=== PATIENT | male | born 1950 | race Caucasian/White ===

== ENCOUNTER 2018-03-02 05:53 | Inpatient (IN) | payer MEDICARE ==
[2018-02-25 11:06] LABS: BASOPHILS % (AUTO) 0.4 % (0-1); EOSINOPHILS # (AUTO) 0.5 X10'3 (0-0.9); EOSINOPHILS % (AUTO) 5.8 % (0-6); LYMPHOCYTES # (AUTO) 2.6 X10'3 (1.1-4.8); MEAN CORPUSCULAR HEMOGLOBIN 26.7 PG (27.0-31.0); MEAN CORPUSCULAR HGB CONC 32.2 % (33.0-36.5); MEAN CORPUSCULAR VOLUME 82.8 FL (78-98); MEAN PLATELET VOLUME 9.5 FL (7.4-10.4); MONOCYTES # (AUTO) 0.9 X10'3 (0-0.9); MONOCYTES % (AUTO) 9.8 % (2-12); NEUTROPHILS # (AUTO) 4.8 X10'3 (1.8-7.7); PRE OP HEMATOCRIT 34.5 % (42.0-52.0); PRE OP HEMOGLOBIN 11.1 g/dL (14.0-17.9); PRE OP PLATELET COUNT 313 X10'3 (140-440); RED BLOOD COUNT 4.16 X10'6 (4.70-6.10); RED CELL DISTRIBUTION WIDTH 15.6 % (11.5-14.5)
[2018-02-25 11:12] LABS: CLARITY,URINE Clear (Clear); COLOR,URINE Yellow (Yellow); GLUCOSE, URINE Negative (Neg); KETONES,URINE Negative (Neg); LEUKOCYTE ESTERASE ,URINE Negative (Neg); NITRITES, URINE Negative (Neg); OCCULT BLOOD,URINE Negative (Neg); PROTEIN,URINE Negative (Neg); UROBILINOGEN,URINE 0.2 E.U/dL (0.2-1.0)
[2018-02-25 11:15] LABS: UA COLLECTION TYPE CLN CATCH MIDSTREAM
[2018-02-25 11:35] LABS: ALBUMIN 3.2 G/DL (3.4-5.0); ALBUMIN/GLOBULIN RATIO 0.8 (1.1-1.5); ALKALINE PHOSPHATASE 78 IU/L (46-116); BLOOD UREA NITROGEN 20 MG/DL (7-18); BUN/CREATININE RATIO 15.7 (5.4-32.0); CALCIUM 9.4 MG/DL (8.5-10.1); CHLORIDE 107 MMOL/L (99-107); CREATININE 1.27 MG/DL (0.60-1.10); PRE OP ALT 15 U/L (30-65); PRE OP ANION GAP 11 (8-16); PRE OP AST 15 U/L (10-37); PRE OP BILIRUB, TOTAL 0.2 MG/DL (0.0-1.0); PRE OP GLUCOSE 139 MG/DL (70-104); PRE OP POTASSIUM 4.9 MMOL/L (3.4-5.1); PRE OP SODIUM 139 MMOL/L (135-145); TOTAL CARBON DIOXIDE 21.4 MMOL/L (24-32); TOTAL PROTEIN 7.1 G/DL (6.4-8.2); eGFR 56 ML/MIN
[~2018-03-02] VITALS: Ht 177.8 cm; Wt 101.0 kg
[2018-03-02] VITALS (20 sets, daily range): BP systolic 92–158; BP diastolic 37–78
[~2018-03-02 05:53] MED LIST: ASPI-845 PO; ATEN50TA PO; ATOR40TA PO; Cefazolin 2GM/50ML dext iso,osmotic IVPB IV ONE; DILT240C PO; DOCUMENT DATE & TIME OF BETA-BLOCKER PO ONE; LISI40TA4 PO; MULT-933 PO; QUET50TA22 PO; SPIR1TAB4 PO; famotidine 20mg tablet PO ONE; ringers solution, lacted 1,000 ML IV SCH
[2018-03-02] MEDS ORDERED: sevoflurane 250ml liquid IH ONE (08:22)
[2018-03-02] MEDS ORDERED: fentaNYL/PF 50MCG/1 ML 2ML syringe ONE (08:23)
[2018-03-02] MEDS ORDERED: midazolam 2 mg/2 ml injection ONE (08:24)
[2018-03-02] MEDS ORDERED: rocuronium 10mg/ml inj IV ONE (08:24)
[2018-03-02] MEDS ORDERED: LIDOcaine 2% (20mg/ml) 5ml vial ONE (08:24)
[2018-03-02] MEDS ORDERED: propofol inj 20 ML IV ONE (08:24)
[2018-03-02] MEDS ORDERED: ondansetron/PF 4mg/2ml inj ONE (08:39)
[2018-03-02] MEDS ORDERED: glycopyrrolate 0.2mg/ml inj ONE (08:41)
[2018-03-02] MEDS ORDERED: neostigmine methylsulfate 1 MG/ML 10ml vial ONE ×2 (08:41→10:11)
[2018-03-02] MEDS ORDERED: ringers solution, lacted 1,000 ML IV SCH (08:59)
[2018-03-02] MEDS ORDERED: fentaNYL/PF 50MCG/1 ML 2ML syringe IV PRN ×2 (09:00)
[2018-03-02] MEDS ORDERED: ondansetron/PF 4mg/2ml inj IV PRN ×2 (09:00→11:15)
[2018-03-02] MEDS ORDERED: morphine 4 MG/ML inj SYRINge IV PRN (09:00)
[2018-03-02] MEDS ORDERED: enalaprilat dihydrate 2.5mg/2ml vial IV PRN (09:00)
[2018-03-02] MEDS ORDERED: hydrALAZINE 20mg/ml inj. IV PRN (09:00)
[2018-03-02] MEDS: morphine 4 MG/ML inj SYRINge IV PRN ×2 (11:05→11:22)
[2018-03-02] MEDS ORDERED: HYDROcodone/acetaminophen 5mg/325mg tablet PO PRN (11:15)
[2018-03-02] MEDS: ceFAZolin inj. 1,000 MG in dextrose 5%-water 50ml 50 ML IV SCH ×2 (16:19→23:30)
[2018-03-02] MEDS: potassium CL 20mEq in D5-1/2NS 1,000 ML IV SCH ×3 (16:19→23:30)
[2018-03-02] MEDS: HYDROcodone/acetaminophen 10/325mg tab PO PRN ×2 (16:58→20:59)
[2018-03-02] MEDS: QUEtiapine 25mg tablet PO SCH (20:59)
[2018-03-03] VITALS: BP 98/44
[2018-03-03] MEDS: HYDROcodone/acetaminophen 10/325mg tab PO PRN ×5 (03:51→20:35)
[2018-03-03 04:30] VITALS: BP 118/34
[2018-03-03 06:03] LABS: ALBUMIN 2.2 G/DL (3.4-5.0); ANION GAP 10 (8-16); BLOOD UREA NITROGEN 19 MG/DL (7-18); BUN/CREATININE RATIO 11.8 (5.4-32.0); CHLORIDE 104 MMOL/L (99-107); CREATININE 1.61 MG/DL (0.60-1.10); GLUCOSE 175 MG/DL (70-104); POTASSIUM 4.5 MMOL/L (3.5-5.1); SODIUM 135 MMOL/L (135-145); TOTAL CARBON DIOXIDE 21.3 MMOL/L (24-32); eGFR 43 ML/MIN
[2018-03-03 06:40] LABS: BASOPHILS % (AUTO) 0 % (0-1); EOSINOPHILS # (AUTO) 0.1 X10'3 (0-0.9); EOSINOPHILS % (AUTO) 0.3 % (0-6); HEMATOCRIT 28.6 % (42.0-52.0); HEMOGLOBIN 9.6 g/dl (14.0-17.9); LYMPHOCYTES # (AUTO) 2.2 X10'3 (1.1-4.8); LYMPHOCYTES % (AUTO) 12.8 % (21-51); MEAN CORPUSCULAR HEMOGLOBIN 27.9 PG (27.0-31.0); MEAN CORPUSCULAR HGB CONC 33.5 % (33.0-36.5); MEAN CORPUSCULAR VOLUME 83.4 FL (78-98); MEAN PLATELET VOLUME 10.5 FL (7.4-10.4); MONOCYTES # (AUTO) 1.3 X10'3 (0-0.9); MONOCYTES % (AUTO) 7.6 % (2-12); NEUTROPHILS # (AUTO) 13.4 X10'3 (1.8-7.7); NEUTROPHILS % (AUTO) 79.3 % (42-75); PLATELET COUNT 217 X10'3 (140-440); RED BLOOD COUNT 3.43 X10'6 (4.70-6.10); RED CELL DISTRIBUTION WIDTH 14.6 % (11.5-14.5)
[2018-03-03] MEDS: ceFAZolin inj. 1,000 MG in dextrose 5%-water 50ml 50 ML IV SCH (06:46)
[2018-03-03 08:00] VITALS: BP 101/45
[2018-03-03] MEDS: potassium CL 20mEq in D5-1/2NS 1,000 ML IV SCH (11:13)
[2018-03-03 12:00] VITALS: BP 118/47
[2018-03-03] MEDS: ceFAZolin 1GM/D5W- ADD-VANTAGE 50 ML IV SCH ×2 (12:29→20:30)
[2018-03-03] MEDS ORDERED: ceFAZolin 1GM/D5W- ADD-VANTAGE 50 ML IV SCH (16:00)
[2018-03-03 20:00] VITALS: BP 143/52
[2018-03-03] MEDS: lactobacillus rhamnosus 10,000 MMU CELLS/CAPSULE PO SCH (20:35)
[2018-03-03] MEDS ORDERED: QUEtiapine 25mg tablet PO SCH (21:00)
[2018-03-03] MEDS: QUEtiapine 25mg tablet PO SCH (21:32)
[2018-03-04] VITALS: BP 156/37
[2018-03-04] MEDS: HYDROcodone/acetaminophen 10/325mg tab PO PRN ×4 (00:46→13:17)
[2018-03-04] MEDS: ceFAZolin 1GM/D5W- ADD-VANTAGE 50 ML IV SCH ×2 (04:30→12:36)
[2018-03-04 05:25] LABS: BASOPHILS % (AUTO) 0.1 % (0-1); EOSINOPHILS # (AUTO) 0.4 X10'3 (0-0.9); EOSINOPHILS % (AUTO) 2.6 % (0-6); HEMATOCRIT 28.4 % (42.0-52.0); HEMOGLOBIN 9.4 g/dl (14.0-17.9); LYMPHOCYTES # (AUTO) 2.3 X10'3 (1.1-4.8); LYMPHOCYTES % (AUTO) 13.9 % (21-51); MEAN CORPUSCULAR HEMOGLOBIN 26.8 PG (27.0-31.0); MEAN CORPUSCULAR HGB CONC 33.3 % (33.0-36.5); MEAN CORPUSCULAR VOLUME 80.7 FL (78-98); MONOCYTES # (AUTO) 1.4 X10'3 (0-0.9); MONOCYTES % (AUTO) 8.6 % (2-12); NEUTROPHILS # (AUTO) 12.1 X10'3 (1.8-7.7); NEUTROPHILS % (AUTO) 74.8 % (42-75); PLATELET COUNT 222 X10'3 (140-440); RED BLOOD COUNT 3.52 X10'6 (4.70-6.10); RED CELL DISTRIBUTION WIDTH 15.6 % (11.5-14.5); WHITE BLOOD COUNT 16.2 X10'3 (4.5-11.0)
[2018-03-04 05:43] LABS: ALBUMIN 2.3 G/DL (3.4-5.0); ANION GAP 7 (8-16); BLOOD UREA NITROGEN 17 MG/DL (7-18); BUN/CREATININE RATIO 11.4 (5.4-32.0); CALCIUM 8.3 MG/DL (8.5-10.1); CHLORIDE 103 MMOL/L (99-107); CREATININE 1.49 MG/DL (0.60-1.10); GLUCOSE 139 MG/DL (70-104); POTASSIUM 4.1 MMOL/L (3.5-5.1); SODIUM 135 MMOL/L (135-145); eGFR 47 ML/MIN
[2018-03-04 07:13] VITALS: BP 131/48
[2018-03-04] MEDS ORDERED: atorvastatin 10mg tablet PO SCH (08:00)
[2018-03-04] MEDS ORDERED: multivitamins, therapeutics tablet PO SCH (08:00)
[2018-03-04] MEDS ORDERED: diltiazem CD 120mg capsule (once-daily) PO SCH (08:00)
[2018-03-04] MEDS ORDERED: aspirin 325mg tablet, delayed-release (Ecotrin) PO SCH (08:00)
[2018-03-04] MEDS ORDERED: lisinopril 20mg tablet PO SCH (08:00)
[2018-03-04] MEDS ORDERED: atenolol 50mg tablet PO SCH (08:00)
[2018-03-04] MEDS ORDERED: spironolactone 25 MG tablet PO SCH (08:30)
[2018-03-04] MEDS ORDERED: HYDROchlorothiazide 25mg tablet PO SCH (08:30)
[2018-03-04] MEDS: lactobacillus rhamnosus 10,000 MMU CELLS/CAPSULE PO SCH (08:41)
[2018-03-04 11:23] VITALS: BP_SYST 113; BP_SYST 121; BP_DIAS 47; BP_DIAS 74
== END 2018-03-04 19:22 | disposition home or self-care (01) | DRG 419 ==
LOC: PAS 05:53 → SUR 3N 05:54 → PAS 12:04 → SUR 3N 12:04
PROVIDERS: ADMIT Surgery; ATTEND Surgery
PROC: 0FT44ZZ Resection of Gallbladder, Percutaneous Endoscopic Approach (ICD-10-PCS; principal; 2018-03-02 08:22)
DX: K80.12 Calculus of gallbladder with acute and chronic cholecystitis without obstruction (principal); E11.9 Type 2 diabetes mellitus without complications; I10 Essential (primary) hypertension; E66.9 Obesity, unspecified; Z68.31 Body mass index [BMI] 31.0-31.9, adult
CPT/HCPCS: 36415; 71046; 80048; 80053; 81003; 82948; 83036; 85025; 85610; 85730; 88304; 93005; 94668; A6251; A6449; A7000; J0690; J2001; J2250; J2270; J2405; J2704; J2710; J3010; J3490; J7060; J7120

== ENCOUNTER 2018-03-08 09:45 | Day surgery (SDC) | payer MEDICARE ==
[~2018-03-08 09:45] MED LIST changes: -Cefazolin 2GM/50ML dext iso,osmotic IVPB IV ONE; -DOCUMENT DATE & TIME OF BETA-BLOCKER PO ONE; -famotidine 20mg tablet PO ONE; -ringers solution, lacted 1,000 ML IV SCH
[2018-03-08] MEDS ORDERED: LEVO750T21 PO (11:12)
== END 2018-03-08 11:24 | disposition home or self-care (01) ==
LOC: WOUND CARE 09:45
PROVIDERS: ATTEND Surgery
DX: E11.621 Type 2 diabetes mellitus with foot ulcer (principal); L97.521 Non-pressure chronic ulcer of other part of left foot limited to breakdown of skin; E11.40 Type 2 diabetes mellitus with diabetic neuropathy, unspecified; E66.9 Obesity, unspecified; K80.13 Calculus of gallbladder with acute and chronic cholecystitis with obstruction; I10 Essential (primary) hypertension; Z68.31 Body mass index [BMI] 31.0-31.9, adult
CPT/HCPCS: 11042; 36416; 82948; A6021; A6206; A6446

== ENCOUNTER 2018-03-17 10:13 | Day surgery (SDC) | payer MEDICARE ==
[~2018-03-17 10:13] MED LIST changes: +LEVO750T21 PO
[2018-03-17] MEDS ORDERED: dextrose ORAL solution 15 GM/59 ML bottle ONE ×2 (11:16)
[2018-03-17] MEDS ORDERED: CLIN150C8 PO (13:52)
== END 2018-03-17 12:19 | disposition home or self-care (01) ==
LOC: WOUND CARE 10:13
PROVIDERS: ATTEND Surgery
DX: E11.621 Type 2 diabetes mellitus with foot ulcer (principal); L97.522 Non-pressure chronic ulcer of other part of left foot with fat layer exposed; E11.40 Type 2 diabetes mellitus with diabetic neuropathy, unspecified; E66.9 Obesity, unspecified; K80.13 Calculus of gallbladder with acute and chronic cholecystitis with obstruction; I10 Essential (primary) hypertension; Z68.31 Body mass index [BMI] 31.0-31.9, adult
CPT/HCPCS: 11044; 36416; 82948; 87070; 87075; 87077; 87102; 87176; 87186; A6021; A6206; L3260

== ENCOUNTER 2018-03-22 09:15 | Outpatient (CLI) | payer MEDICARE ==
[~2018-03-22 09:15] MED LIST changes: +CLIN150C8 PO; -LEVO750T21 PO
[2018-03-22] MEDS ORDERED: HYDR-3964 PO (12:43)
[2018-03-22] MEDS ORDERED: RIFA300C4 PO (12:50)
[2018-03-22] MEDS ORDERED: ATOR10TA PO (12:52)
== END 2018-03-22 11:40 | disposition home or self-care (01) ==
LOC: WOUND CARE 09:15 → EDSTATUS 09:30 → WOUND CARE 11:40
PROVIDERS: ATTEND Surgery
DX: E11.621 Type 2 diabetes mellitus with foot ulcer (principal); L97.522 Non-pressure chronic ulcer of other part of left foot with fat layer exposed; E11.40 Type 2 diabetes mellitus with diabetic neuropathy, unspecified; E66.9 Obesity, unspecified; K80.13 Calculus of gallbladder with acute and chronic cholecystitis with obstruction; I10 Essential (primary) hypertension; Z68.31 Body mass index [BMI] 31.0-31.9, adult
CPT/HCPCS: 36416; 82948; 99215

== ENCOUNTER 2018-03-23 12:38 | Day surgery (SDC) | payer MEDICARE ==
[2018-03-22 13:41] LABS: CLARITY,URINE CLEAR (Clear); COLOR,URINE YELLOW (Yellow); GLUCOSE, URINE NEGATIVE (Neg); KETONES,URINE NEGATIVE (Neg); LEUKOCYTE ESTERASE ,URINE NEGATIVE (Neg); NITRITES, URINE NEGATIVE (Neg); OCCULT BLOOD,URINE MODERATE (Neg); PH,URINE 5.5 (4.8-8.0); PROTEIN,URINE NEGATIVE (Neg); UROBILINOGEN,URINE 0.2 E.U/dL (0.2-1.0)
[2018-03-22 13:45] LABS: RED BLOOD COUNT 3.91 X10'6 (4.70-6.10)
[2018-03-22 13:47] LABS: PRE OP PROTIME 10.7 SECONDS (9.0-12.0)
[2018-03-22 13:48] LABS: BASOPHILS % (AUTO) 0.4 % (0-1); EOSINOPHILS % (AUTO) 5.4 % (0-6); LYMPHOCYTES % (AUTO) 24.6 % (21-51); MEAN CORPUSCULAR HEMOGLOBIN 26.3 PG (27.0-31.0); MEAN CORPUSCULAR HGB CONC 32.9 % (33.0-36.5); MEAN CORPUSCULAR VOLUME 79.7 FL (78-98); MEAN PLATELET VOLUME 8.7 FL (7.4-10.4); MONOCYTES % (AUTO) 6.1 % (2-12); NEUTROPHILS % (AUTO) 63.5 % (42-75); PRE OP HEMATOCRIT 31.1 % (42.0-52.0); PRE OP HEMOGLOBIN 10.3 g/dL (14.0-17.9); PRE OP PLATELET COUNT 466 X10'3 (140-440); RED CELL DISTRIBUTION WIDTH 14.8 % (11.5-14.5)
[2018-03-22 13:49] LABS: EOSINOPHILS # (AUTO) 0.6 X10'3 (0-0.9); LYMPHOCYTES # (AUTO) 2.8 X10'3 (1.1-4.8); MONOCYTES # (AUTO) 0.7 X10'3 (0-0.9); NEUTROPHILS # (AUTO) 7.4 X10'3 (1.8-7.7)
[2018-03-22 13:51] LABS: ALBUMIN 2.5 G/DL (3.4-5.0); ALBUMIN/GLOBULIN RATIO 0.6 (1.1-1.5); ALKALINE PHOSPHATASE 110 IU/L (46-116); BLOOD UREA NITROGEN 26 MG/DL (7-18); CALCIUM 8.7 MG/DL (8.5-10.1); CHLORIDE 107 MMOL/L (99-107); CREATININE 1.62 MG/DL (0.60-1.10); PRE OP ALT 20 U/L (30-65); PRE OP ANION GAP 12 (8-16); PRE OP AST 13 U/L (10-37); PRE OP BILIRUB, TOTAL 0.2 MG/DL (0.0-1.0); PRE OP GLUCOSE 188 MG/DL (70-104); PRE OP POTASSIUM 4.7 MMOL/L (3.4-5.1); PRE OP SODIUM 142 MMOL/L (135-145); TOTAL CARBON DIOXIDE 22.9 MMOL/L (24-32); TOTAL PROTEIN 6.6 G/DL (6.4-8.2); eGFR 42 ML/MIN
[2018-03-22 13:54] LABS: UA COLLECTION TYPE VOIDED
[2018-03-22 13:56] LABS: HYALINE CASTS 0-3 /LPF (NEGATIVE)
[2018-03-22 13:57] LABS: BACTERIA,URINE FEW /HPF (Neg); MUCUS STRANDS MODERATE /LPF (Neg); RBC,URINE 0-2 /HPF (0-2); SQUAMOUS EPITHELIAL CELL,UR FEW /LPF (FEW); WBC,URINE 0-4 /HPF (0-4)
[~2018-03-23] VITALS: Ht 177.8 cm; Wt 95.2 kg
[~2018-03-23 12:38] MED LIST changes: +ATOR10TA PO; +DOCUMENT DATE & TIME OF BETA-BLOCKER PO ONE; +HYDR-3964 PO; +RIFA300C4 PO; +cefazolin/dext.iso 2gm/100 ML IV ONE; +famotidine 20mg tablet PO ONE; +ringers solution, lacted 1,000 ML IV SCH
[2018-03-23] MEDS ORDERED: LIDOcaine 1% 30ml preserv. free vial ONE (14:44)
[2018-03-23] MEDS ORDERED: midazolam 2 mg/2 ml injection ONE (15:09)
[2018-03-23] MEDS ORDERED: fentaNYL/PF 50MCG/1 ML 2ML syringe ONE (15:09)
[2018-03-23] MEDS ORDERED: LIDOcaine 1%/PF 5ML 10 MG/ML VIAL ONE (15:13)
[2018-03-23] MEDS ORDERED: propofol inj 20 ML IV ONE (15:13)
[2018-03-23 15:37] VITALS: BP 111/62
[2018-03-23 15:42] VITALS: BP 111/62
[2018-03-23 15:45] VITALS: BP 108/58
[2018-03-23 15:55] VITALS: BP 121/58
[2018-03-23 16:05] VITALS: BP 118/54
[2018-03-23 16:15] VITALS: BP 125/52
== END 2018-03-23 16:25 | disposition home or self-care (01) ==
LOC: PAS 12:38
PROVIDERS: ATTEND Surgery
DX: E11.69 Type 2 diabetes mellitus with other specified complication (principal); M86.8X7 Other osteomyelitis, ankle and foot; E11.621 Type 2 diabetes mellitus with foot ulcer; L97.528 Non-pressure chronic ulcer of other part of left foot with other specified severity; I10 Essential (primary) hypertension; I25.10 Atherosclerotic heart disease of native coronary artery without angina pectoris; Z95.0 Presence of cardiac pacemaker; Z95.5 Presence of coronary angioplasty implant and graft; Z98.84 Bariatric surgery status; Z79.899 Other long term (current) drug therapy
CPT/HCPCS: 28820; 36415; 80053; 81001; 85025; 85610; 85730; A6266; A6446; A6449; J0690; J2001; J2250; J2704; J3010; J3490; J7120; A7000

== ENCOUNTER 2018-03-25 10:05 | Outpatient (CLI) | payer MEDICARE ==
[~2018-03-25 10:05] MED LIST changes: -ATOR40TA PO; -CLIN150C8 PO; -DOCUMENT DATE & TIME OF BETA-BLOCKER PO ONE; -HYDR-3964 PO; -cefazolin/dext.iso 2gm/100 ML IV ONE; -famotidine 20mg tablet PO ONE; -ringers solution, lacted 1,000 ML IV SCH
== END 2018-03-25 13:08 | disposition home or self-care (01) ==
LOC: WOUND CARE 10:05 → EDSTATUS 11:00 → WOUND CARE 13:08
PROVIDERS: ATTEND Surgery
DX: E11.621 Type 2 diabetes mellitus with foot ulcer (principal); L97.522 Non-pressure chronic ulcer of other part of left foot with fat layer exposed; E11.40 Type 2 diabetes mellitus with diabetic neuropathy, unspecified; E66.9 Obesity, unspecified; K80.13 Calculus of gallbladder with acute and chronic cholecystitis with obstruction; I10 Essential (primary) hypertension; Z68.31 Body mass index [BMI] 31.0-31.9, adult
CPT/HCPCS: 36416; 82948; 99215; A6209; A6266

== ENCOUNTER 2018-03-29 08:00 | Day surgery (SDC) | payer MEDICARE ==
[2018-03-29] MEDS ORDERED: LIDOcaine/PRILOcaine 5gm cream TP ONE (09:44)
== END 2018-03-29 10:34 | disposition home or self-care (01) ==
LOC: WOUND CARE 08:00
PROVIDERS: ATTEND Surgery
DX: T87.89 Other complications of amputation stump (principal); E11.621 Type 2 diabetes mellitus with foot ulcer; L97.522 Non-pressure chronic ulcer of other part of left foot with fat layer exposed; E11.40 Type 2 diabetes mellitus with diabetic neuropathy, unspecified; E66.9 Obesity, unspecified; K80.13 Calculus of gallbladder with acute and chronic cholecystitis with obstruction; I10 Essential (primary) hypertension; E11.65 Type 2 diabetes mellitus with hyperglycemia; Z68.31 Body mass index [BMI] 31.0-31.9, adult; Y83.5 Amputation of limb(s) as the cause of abnormal reaction of the patient, or of later complication, without mention of misadventure at the time of the procedure
CPT/HCPCS: 11042; 36416; 82948; A6266

== ENCOUNTER 2018-04-01 07:58 | Day surgery (SDC) | payer MEDICARE | END 2018-04-01 10:07 | disposition home or self-care (01) | LOC: WOUND CARE 07:58 | PROVIDERS: ATTEND Surgery | DX: T87.89 Other complications of amputation stump (principal); E11.621 Type 2 diabetes mellitus with foot ulcer; L97.522 Non-pressure chronic ulcer of other part of left foot with fat layer exposed; E11.40 Type 2 diabetes mellitus with diabetic neuropathy, unspecified; E66.9 Obesity, unspecified; K80.13 Calculus of gallbladder with acute and chronic cholecystitis with obstruction; I10 Essential (primary) hypertension; E11.65 Type 2 diabetes mellitus with hyperglycemia; Z68.31 Body mass index [BMI] 31.0-31.9, adult; Y83.5 Amputation of limb(s) as the cause of abnormal reaction of the patient, or of later complication, without mention of misadventure at the time of the procedure | CPT/HCPCS: 11042; 36416; 82948; A6021; A6206 ==

== ENCOUNTER 2018-04-05 07:55 | Day surgery (SDC) | payer MEDICARE ==
[2018-04-05] MEDS ORDERED: LIDOcaine/PRILOcaine 5gm cream TP ONE (09:57)
== END 2018-04-05 10:35 | disposition home or self-care (01) ==
LOC: WOUND CARE 07:55
PROVIDERS: ATTEND Surgery
DX: T81.89XD Other complications of procedures, not elsewhere classified, subsequent encounter (principal); E11.621 Type 2 diabetes mellitus with foot ulcer; L97.522 Non-pressure chronic ulcer of other part of left foot with fat layer exposed; E11.40 Type 2 diabetes mellitus with diabetic neuropathy, unspecified; E66.9 Obesity, unspecified; K80.13 Calculus of gallbladder with acute and chronic cholecystitis with obstruction; I10 Essential (primary) hypertension; E11.65 Type 2 diabetes mellitus with hyperglycemia; Z68.31 Body mass index [BMI] 31.0-31.9, adult; Y83.8 Other surgical procedures as the cause of abnormal reaction of the patient, or of later complication, without mention of misadventure at the time of the procedure
CPT/HCPCS: 11042; 36416; 82948; A6021; A6206

== ENCOUNTER 2018-04-12 08:25 | Day surgery (SDC) | payer MEDICARE | END 2018-04-12 11:03 | disposition home or self-care (01) | LOC: WOUND CARE 08:25 | PROVIDERS: ATTEND Surgery | DX: T81.89XD Other complications of procedures, not elsewhere classified, subsequent encounter (principal); E11.621 Type 2 diabetes mellitus with foot ulcer; L97.522 Non-pressure chronic ulcer of other part of left foot with fat layer exposed; E11.40 Type 2 diabetes mellitus with diabetic neuropathy, unspecified; E66.9 Obesity, unspecified; K80.13 Calculus of gallbladder with acute and chronic cholecystitis with obstruction; I10 Essential (primary) hypertension; E11.65 Type 2 diabetes mellitus with hyperglycemia; Z68.31 Body mass index [BMI] 31.0-31.9, adult; Y83.8 Other surgical procedures as the cause of abnormal reaction of the patient, or of later complication, without mention of misadventure at the time of the procedure | CPT/HCPCS: 11042; 36416; 82948; A6021; A6206; A6446 ==

== ENCOUNTER 2018-04-19 08:00 | Day surgery (SDC) | payer MEDICARE ==
[2018-04-19] MEDS ORDERED: LIDOcaine/PRILOcaine 5gm cream TP ONE (09:50)
== END 2018-04-19 10:48 | disposition home or self-care (01) ==
LOC: WOUND CARE 08:00
PROVIDERS: ATTEND Surgery
DX: T81.89XD Other complications of procedures, not elsewhere classified, subsequent encounter (principal); E11.621 Type 2 diabetes mellitus with foot ulcer; L97.522 Non-pressure chronic ulcer of other part of left foot with fat layer exposed; E11.40 Type 2 diabetes mellitus with diabetic neuropathy, unspecified; E66.9 Obesity, unspecified; K80.13 Calculus of gallbladder with acute and chronic cholecystitis with obstruction; I10 Essential (primary) hypertension; E11.65 Type 2 diabetes mellitus with hyperglycemia; Z68.31 Body mass index [BMI] 31.0-31.9, adult; Y83.8 Other surgical procedures as the cause of abnormal reaction of the patient, or of later complication, without mention of misadventure at the time of the procedure
CPT/HCPCS: 15275; 36416; 82948; A6209; A6446; A6449; Q4106; A6250

== ENCOUNTER 2018-04-26 07:50 | Day surgery (SDC) | payer MEDICARE ==
[2018-04-26] MEDS ORDERED: LIDOcaine/PRILOcaine 5gm cream TP ONE (09:36)
== END 2018-04-26 10:29 | disposition home or self-care (01) ==
LOC: WOUND CARE 07:50
PROVIDERS: ATTEND Surgery
DX: T81.89XD Other complications of procedures, not elsewhere classified, subsequent encounter (principal); E11.621 Type 2 diabetes mellitus with foot ulcer; L97.522 Non-pressure chronic ulcer of other part of left foot with fat layer exposed; E11.40 Type 2 diabetes mellitus with diabetic neuropathy, unspecified; E66.9 Obesity, unspecified; K80.13 Calculus of gallbladder with acute and chronic cholecystitis with obstruction; I10 Essential (primary) hypertension; E11.65 Type 2 diabetes mellitus with hyperglycemia; Z68.31 Body mass index [BMI] 31.0-31.9, adult; Y83.8 Other surgical procedures as the cause of abnormal reaction of the patient, or of later complication, without mention of misadventure at the time of the procedure
CPT/HCPCS: 15275; 36416; 82948; A6209; A6222; Q4133; A6212; A6250; A6446

== ENCOUNTER 2018-05-03 08:01 | Day surgery (SDC) | payer MEDICARE ==
[2018-05-03] MEDS ORDERED: LIDOcaine/PRILOcaine 5gm cream TP ONE (09:44)
== END 2018-05-03 10:25 | disposition home or self-care (01) ==
LOC: WOUND CARE 08:01
PROVIDERS: ATTEND Surgery
DX: T81.89XD Other complications of procedures, not elsewhere classified, subsequent encounter (principal); E11.621 Type 2 diabetes mellitus with foot ulcer; L97.522 Non-pressure chronic ulcer of other part of left foot with fat layer exposed; E11.40 Type 2 diabetes mellitus with diabetic neuropathy, unspecified; E66.9 Obesity, unspecified; K80.13 Calculus of gallbladder with acute and chronic cholecystitis with obstruction; I10 Essential (primary) hypertension; E11.65 Type 2 diabetes mellitus with hyperglycemia; Z68.31 Body mass index [BMI] 31.0-31.9, adult; Y83.8 Other surgical procedures as the cause of abnormal reaction of the patient, or of later complication, without mention of misadventure at the time of the procedure
CPT/HCPCS: 15275; 36416; 82948; A6209; A6222; Q4133; A6250; A6446

== ENCOUNTER 2018-05-10 08:03 | Outpatient (CLI) | payer MEDICARE ==
[2018-05-10] MEDS ORDERED: LIDOcaine/PRILOcaine 5gm cream TP ONE (09:42)
== END 2018-05-10 10:21 | disposition home or self-care (01) ==
LOC: WOUND CARE 08:03
PROVIDERS: ATTEND Surgery
DX: T81.89XD Other complications of procedures, not elsewhere classified, subsequent encounter (principal); E11.621 Type 2 diabetes mellitus with foot ulcer; L97.522 Non-pressure chronic ulcer of other part of left foot with fat layer exposed; E11.40 Type 2 diabetes mellitus with diabetic neuropathy, unspecified; E66.9 Obesity, unspecified; K80.13 Calculus of gallbladder with acute and chronic cholecystitis with obstruction; I10 Essential (primary) hypertension; E11.65 Type 2 diabetes mellitus with hyperglycemia; Z68.31 Body mass index [BMI] 31.0-31.9, adult; Y83.8 Other surgical procedures as the cause of abnormal reaction of the patient, or of later complication, without mention of misadventure at the time of the procedure
CPT/HCPCS: 36416; 82948; 99215; A6206; A6446

== ENCOUNTER 2018-05-17 08:01 | Day surgery (SDC) | payer MEDICARE | END 2018-05-17 10:27 | disposition home or self-care (01) | LOC: WOUND CARE 08:01 | PROVIDERS: ATTEND Surgery | DX: T81.89XD Other complications of procedures, not elsewhere classified, subsequent encounter (principal); E11.621 Type 2 diabetes mellitus with foot ulcer; L97.522 Non-pressure chronic ulcer of other part of left foot with fat layer exposed; E11.40 Type 2 diabetes mellitus with diabetic neuropathy, unspecified; E66.9 Obesity, unspecified; K80.13 Calculus of gallbladder with acute and chronic cholecystitis with obstruction; I10 Essential (primary) hypertension; E11.65 Type 2 diabetes mellitus with hyperglycemia; Z68.31 Body mass index [BMI] 31.0-31.9, adult; Y83.8 Other surgical procedures as the cause of abnormal reaction of the patient, or of later complication, without mention of misadventure at the time of the procedure | CPT/HCPCS: 15275; 36416; 82948; Q4133; A6212; A6250; A6446 ==

== ENCOUNTER 2018-05-24 08:02 | Day surgery (SDC) | payer MEDICARE ==
[2018-05-24] MEDS ORDERED: LIDOcaine/PRILOcaine 5gm cream TP ONE (09:24)
== END 2018-05-24 10:17 | disposition home or self-care (01) ==
LOC: WOUND CARE 08:02
PROVIDERS: ATTEND Surgery
DX: T81.89XD Other complications of procedures, not elsewhere classified, subsequent encounter (principal); E11.621 Type 2 diabetes mellitus with foot ulcer; L97.522 Non-pressure chronic ulcer of other part of left foot with fat layer exposed; E11.40 Type 2 diabetes mellitus with diabetic neuropathy, unspecified; E66.9 Obesity, unspecified; K80.13 Calculus of gallbladder with acute and chronic cholecystitis with obstruction; I10 Essential (primary) hypertension; E11.65 Type 2 diabetes mellitus with hyperglycemia; Z68.31 Body mass index [BMI] 31.0-31.9, adult; Y83.8 Other surgical procedures as the cause of abnormal reaction of the patient, or of later complication, without mention of misadventure at the time of the procedure
CPT/HCPCS: 15275; 36416; 82948; A6209; A6222; Q4133; A6250; A6446

== ENCOUNTER 2018-06-30 08:00 | Outpatient (CLI) | payer MEDICARE ==
--- NOTE | 2018-06-30 13:49 | NUR ---
Patient ambulated independently from [facility] and was admitted to outpatient wound care for physician visit. Dressing removed, wound cleansed. Patient assessed for changes in conditions, medications and medical history. [id number] at bedside accompanied by RN. Wounds assessed and no debridement was done. Patient diagnosed as healed. No dressings were ordered. Patient was discharged. Patient instructed on the signs and symptoms of infection and to call the Wound Center if any occur or to go to the ED if we are closed: Increased pain in wound Increase in drainage from the wound Redness in the skin surrounding the wound Bleeding from the wound Temperature of 101 or greater Patient instructed that elevated blood sugars delay healing of the wound and can cause further complications including but not limited to amputation of toes or feet. Patient verbalized understanding of all discharge instructions and plan of care and ambulated independently out to [facility] in stable condition with no sign or symptom of distress at time of discharge. Addendum: 06/30/18 at 1352 by Mariama Shirley RN Amended: Links added.
== END 2018-06-30 10:20 | disposition home or self-care (01) ==
LOC: WOUND CARE 08:00 → EDSTATUS 08:00 → WOUND CARE 10:20
PROVIDERS: ATTEND Surgery
DX: T81.89XD Other complications of procedures, not elsewhere classified, subsequent encounter (principal); E11.621 Type 2 diabetes mellitus with foot ulcer; L97.522 Non-pressure chronic ulcer of other part of left foot with fat layer exposed; E11.40 Type 2 diabetes mellitus with diabetic neuropathy, unspecified; E66.9 Obesity, unspecified; K80.13 Calculus of gallbladder with acute and chronic cholecystitis with obstruction; I10 Essential (primary) hypertension; E11.65 Type 2 diabetes mellitus with hyperglycemia; Z68.31 Body mass index [BMI] 31.0-31.9, adult; Y83.8 Other surgical procedures as the cause of abnormal reaction of the patient, or of later complication, without mention of misadventure at the time of the procedure
CPT/HCPCS: 36416; 82948; G0463; A6021

== ENCOUNTER 2019-08-17 17:37 | Emergency (ER) | payer MEDICARE ==
[~2019-08-17] VITALS: Ht 172.7 cm; Wt 94.2 kg
[~2019-08-17 17:37] MED LIST changes: +DILT-94 PO; -DILT240C PO; +TRIF7.5D6 TOP
[2019-08-17] MEDS ORDERED: normal saline 1000ML IV soln IVB ONE (18:50)
[2019-08-17] MEDS ORDERED: thiamine 100mg/ml 2ml inj. IV ONE (18:50)
[2019-08-17] MEDS ORDERED: folic acid 1mg/0.2ml inj IV ONE (18:50)
--- NOTE | 2019-08-17 19:35 | NUR ---
The patient is a 69 year old male who was brought to the ER by law enforcement after his girlfriend called the police because he was making suicidal thoughts. He stated that he has been having depression and this morning he was having suicidal thoughts. He denies feeling suicidal now. He stated he is an alcoholic and has been drinking a 5th of vodka per day. He reports drinking prior to coming to the ER.
[2019-08-17 19:55] LABS: CLARITY,URINE CLEAR (Clear); COLOR,URINE YELLOW (Yellow); GLUCOSE, URINE NEGATIVE (Neg); KETONES,URINE NEGATIVE (Neg); LEUKOCYTE ESTERASE ,URINE NEGATIVE (Neg); NITRITES, URINE NEGATIVE (Neg); OCCULT BLOOD,URINE NEGATIVE (Neg); PROTEIN,URINE TRACE mg/dl (Neg); UROBILINOGEN,URINE 0.2 E.U/dL (0.2-1.0)
[2019-08-17 19:57] LABS: BASOPHILS # (AUTO) 0.1 X10'3 (0-0.2); BASOPHILS % (AUTO) 0.9 % (0-1); EOSINOPHILS # (AUTO) 0.1 X10'3 (0-0.9); EOSINOPHILS % (AUTO) 1.2 % (0-6); HEMATOCRIT 42.7 % (42.0-52.0); HEMOGLOBIN 13.7 g/dl (14.0-17.9); LYMPHOCYTES # (AUTO) 3.8 X10'3 (1.1-4.8); LYMPHOCYTES % (AUTO) 43.9 % (21-51); MEAN CORPUSCULAR HEMOGLOBIN 26.5 PG (27.0-31.0); MEAN CORPUSCULAR HGB CONC 32.2 g/dL (33.0-36.5); MEAN CORPUSCULAR VOLUME 82.5 FL (78-98); MEAN PLATELET VOLUME 8.4 FL (7.4-10.4); MONOCYTES # (AUTO) 0.4 X10'3 (0-0.9); MONOCYTES % (AUTO) 4.6 % (2-12); NEUTROPHILS # (AUTO) 4.3 X10'3 (1.8-7.7); NEUTROPHILS % (AUTO) 49.4 % (42-75); PLATELET COUNT 294 X10'3 (140-440); RED BLOOD COUNT 5.17 X10'6 (4.70-6.10); WHITE BLOOD COUNT 8.7 X10'3 (4.5-11.0)
[2019-08-17 20:08] LABS: UA COLLECTION TYPE CLN CATCH MIDSTREAM
[2019-08-17 20:10] LABS: ALANINE AMINOTRANSFERASE 30 U/L (12-78); ALBUMIN 3.4 G/DL (3.4-5.0); ALBUMIN/GLOBULIN RATIO 0.9 (1.1-1.5); ALKALINE PHOSPHATASE 131 IU/L (46-116); ANION GAP 16 (8-16); ASPARTATE AMINO TRANSFERASE 30 U/L (10-37); BILIRUBIN,TOTAL 0.3 MG/DL (0.1-1.0); BLOOD UREA NITROGEN 21 MG/DL (7-18); BUN/CREATININE RATIO 16.2 (5.4-32.0); CALCIUM 8.6 MG/DL (8.5-10.1); CHLORIDE 109 MMOL/L (99-107); GLUCOSE 103 MG/DL (70-104); POTASSIUM 4.9 MMOL/L (3.5-5.1); SODIUM 147 MMOL/L (135-145); TOTAL CARBON DIOXIDE 21.7 MMOL/L (24-32); TOTAL PROTEIN 7.2 G/DL (6.4-8.2); eGFR 54 ML/MIN
[2019-08-17 20:10] LABS: BACTERIA,URINE NONE SEEN /HPF (Neg); RBC,URINE 0-2 /HPF (0-2); SQUAMOUS EPITHELIAL CELL,UR FEW /LPF (FEW); WBC,URINE NONE SEEN /HPF (0-4)
[2019-08-17 20:14] LABS: URINE AMPHETAMINE SCREEN NEGATIVE (Neg); URINE BARBITUATE SCREEN NEGATIVE (Neg); URINE BENZODIAZEPINES SCREEN NEGATIVE (Neg); URINE CANNABINOID SCREEN NEGATIVE (Neg); URINE COCAINE SCREEN NEGATIVE (Neg); URINE METHADONE SCREEN NEGATIVE (Neg); URINE OPIATE SCREEN NEGATIVE (Neg); URINE PHENCYCLIDINE SCREEN NEGATIVE (Neg)
[2019-08-17 20:20] LABS: ETHANOL 0.285 GM/DL (0.0-0.010)
[2019-08-17] MEDS: QUEtiapine 25mg tablet PO SCH ×2 (20:43→21:19)
--- NOTE | 2019-08-17 20:43 | NUR ---
The patient takes Seroquel as a sleeping bill. He cannot recall when he last took it. He is intoxicated and sleeping at this point and the medication was held
[2019-08-17] MEDS ORDERED: acetaminophen 325mg tablet PO ONE (21:15)
--- NOTE | 2019-08-18 00:20 | NUR ---
The patient is awake and sitting up in a chair
--- NOTE | 2019-08-18 02:50 | NUR ---
Assumed care of patient. Pt appears to be sleeping in supine position with no distress noted. Respirations even and unlabored.
--- NOTE | 2019-08-18 04:51 | NUR ---
Pt appears to be sleeping, lying on his right side. No distress noted. Respirations even and unlabored.
[2019-08-18 05:03] VITALS: BP_DIAS 78
--- NOTE | 2019-08-18 05:10 | NUR ---
Pt's AM blood pressure automatic cuff 201/72; manual was 190/78. Pt. has a history of HTN, verfied with Dr. Stephanie mckeon to wait of 0800 HTN medications. Pt. is asymptomatic, alert and oriented. Pt. walked himself to the bathroom without incident.
--- NOTE | 2019-08-18 06:35 | NUR ---
Patient sitting at the edge of his bed. No distress observed. Continue to monitor.
[2019-08-18] MEDS ORDERED: atenolol 50mg tablet PO SCH (08:00)
[2019-08-18] MEDS ORDERED: diltiazem CD 120mg capsule (once-daily) PO SCH (08:00)
[2019-08-18] MEDS ORDERED: atorvastatin 10mg tablet PO SCH (08:00)
[2019-08-18] MEDS ORDERED: spironolactone 25 MG tablet PO SCH (08:00)
[2019-08-18] MEDS ORDERED: aspirin 325mg tablet, delayed-release (Ecotrin) PO SCH (08:00)
[2019-08-18] MEDS ORDERED: lisinopril 20mg tablet PO SCH (08:00)
[2019-08-18] MEDS ORDERED: multivitamins, therapeutics tablet PO SCH (08:00)
[2019-08-18] MEDS ORDERED: HYDROchlorothiazide 25mg tablet PO SCH (08:00)
[2019-08-18 08:05] VITALS: BP_SYST 190
--- NOTE | 2019-08-18 08:20 | NUR ---
Patient eating breakfast. No distress observed. No signs of ETOH withdrawal. Continue to monitor.
--- NOTE | 2019-08-18 09:43 | NUR ---
Patienbt sleeping on right side. No distress observed. Continue to monitor.
--- NOTE | 2019-08-18 09:55 | NUR ---
Patient speaking with NORMA Juarez. Continue to monitor.
== END 2019-08-18 10:45 | disposition home or self-care (01) ==
LOC: ER 17:38
DX: F10.10 Alcohol abuse, uncomplicated (principal); E86.0 Dehydration; R45.851 Suicidal ideations; E11.9 Type 2 diabetes mellitus without complications; F32.9 Major depressive disorder, single episode, unspecified; F43.10 Post-traumatic stress disorder, unspecified; Z79.82 Long term (current) use of aspirin; Z79.899 Other long term (current) drug therapy
CPT/HCPCS: 36415; 80053; 80305; 80320; 81001; 84443; 85025; 96361; 96374; 96375; 99284; J3411; J3490; J7030

== ENCOUNTER 2019-08-23 04:18 | Emergency (ER) | payer MEDICARE ==
[~2019-08-23] VITALS: Ht 172.7 cm; Wt 100.0 kg
[~2019-08-23 04:18] MED LIST changes: -RIFA300C4 PO; -TRIF7.5D6 TOP
[2019-08-23 04:22] VITALS: BP 130/60
== END 2019-08-23 04:51 | disposition home or self-care (01) ==
LOC: ER 04:19
DX: F10.10 Alcohol abuse, uncomplicated (principal); E11.9 Type 2 diabetes mellitus without complications; H26.9 Unspecified cataract; Z79.82 Long term (current) use of aspirin; Z79.899 Other long term (current) drug therapy
CPT/HCPCS: 99283

== ENCOUNTER 2019-09-03 18:23 | Emergency (ER) | payer MEDICARE ==
[~2019-09-03] VITALS: Ht 172.7 cm; Wt 92.9 kg
[2019-09-03 21:00] VITALS: BP 146/78
== END 2019-09-03 20:54 | disposition home or self-care (01) ==
LOC: ER 18:24
DX: E11.621 Type 2 diabetes mellitus with foot ulcer (principal); L97.528 Non-pressure chronic ulcer of other part of left foot with other specified severity; Z79.82 Long term (current) use of aspirin; Z79.899 Other long term (current) drug therapy
CPT/HCPCS: 82948; 99282

== ENCOUNTER 2019-09-06 09:05 | Day surgery (SDC) | payer MEDICARE ==
[2019-09-06] MEDS ORDERED: dextrose ORAL solution 15 GM/59 ML bottle ONE (09:37)
[2019-09-06] MEDS ORDERED: LIDOcaine 2% 5ml jelly ONE (09:46)
== END 2019-09-06 10:29 | disposition home or self-care (01) ==
LOC: WOUND CARE 09:05
PROVIDERS: ATTEND Nurse Practitioner Family
DX: E11.621 Type 2 diabetes mellitus with foot ulcer (principal); L97.522 Non-pressure chronic ulcer of other part of left foot with fat layer exposed; E11.40 Type 2 diabetes mellitus with diabetic neuropathy, unspecified; E11.36 Type 2 diabetes mellitus with diabetic cataract; I25.10 Atherosclerotic heart disease of native coronary artery without angina pectoris; F32.9 Major depressive disorder, single episode, unspecified; F10.10 Alcohol abuse, uncomplicated; Z95.0 Presence of cardiac pacemaker; Z87.891 Personal history of nicotine dependence; Z79.82 Long term (current) use of aspirin; Z79.899 Other long term (current) drug therapy; Z90.49 Acquired absence of other specified parts of digestive tract
CPT/HCPCS: 36416; 82948; 97597

== ENCOUNTER 2019-09-13 08:55 | Day surgery (SDC) | payer MEDICARE ==
[2019-09-13] MEDS ORDERED: LIDOcaine 2% 5ml jelly ONE (09:23)
== END 2019-09-13 10:13 | disposition home or self-care (01) ==
LOC: WOUND CARE 08:55
PROVIDERS: ATTEND Nurse Practitioner Family
DX: E11.621 Type 2 diabetes mellitus with foot ulcer (principal); L97.522 Non-pressure chronic ulcer of other part of left foot with fat layer exposed; E11.40 Type 2 diabetes mellitus with diabetic neuropathy, unspecified; E11.36 Type 2 diabetes mellitus with diabetic cataract; I25.10 Atherosclerotic heart disease of native coronary artery without angina pectoris; F32.9 Major depressive disorder, single episode, unspecified; F10.10 Alcohol abuse, uncomplicated; Z95.0 Presence of cardiac pacemaker; Z87.891 Personal history of nicotine dependence; Z79.82 Long term (current) use of aspirin; Z79.899 Other long term (current) drug therapy; Z90.49 Acquired absence of other specified parts of digestive tract
CPT/HCPCS: 36416; 82948; 97597

== ENCOUNTER 2019-09-20 08:55 | Day surgery (SDC) | payer MEDICARE ==
[2019-09-20] MEDS ORDERED: LIDOcaine 2% 5ml jelly ONE (09:21)
== END 2019-09-20 10:16 | disposition home or self-care (01) ==
LOC: WOUND CARE 08:55
PROVIDERS: ATTEND Nurse Practitioner Family
DX: E11.621 Type 2 diabetes mellitus with foot ulcer (principal); L97.522 Non-pressure chronic ulcer of other part of left foot with fat layer exposed; E11.40 Type 2 diabetes mellitus with diabetic neuropathy, unspecified; E11.36 Type 2 diabetes mellitus with diabetic cataract; I25.10 Atherosclerotic heart disease of native coronary artery without angina pectoris; F32.9 Major depressive disorder, single episode, unspecified; F10.10 Alcohol abuse, uncomplicated; Z95.0 Presence of cardiac pacemaker; Z87.891 Personal history of nicotine dependence; Z79.82 Long term (current) use of aspirin; Z79.899 Other long term (current) drug therapy; Z90.49 Acquired absence of other specified parts of digestive tract; Z89.422 Acquired absence of other left toe(s)
CPT/HCPCS: 36416; 82948; 97597

== ENCOUNTER 2019-09-24 06:24 | Inpatient (IN) | payer MEDICARE ==
[~2019-09-24] VITALS: Ht 177.8 cm; Wt 92.7 kg
[2019-09-24] MEDS ORDERED: acetaminophen 325mg tablet PO ONE ×2 (06:50→08:15)
[2019-09-24] MEDS ORDERED: CefTRIAXone/D5W-Rocephin 1gm 50 ML IV ONE (08:15)
[2019-09-24 08:25] LABS: BASOPHILS # (AUTO) 0.1 X10'3 (0-0.2); BASOPHILS % (AUTO) 0.4 % (0-1); EOSINOPHILS # (AUTO) 0.1 X10'3 (0-0.9); EOSINOPHILS % (AUTO) 0.7 % (0-6); HEMATOCRIT 31.4 % (42.0-52.0); HEMOGLOBIN 10.1 g/dl (14.0-17.9); LYMPHOCYTES # (AUTO) 0.9 X10'3 (1.1-4.8); LYMPHOCYTES % (AUTO) 7.2 % (21-51); MEAN CORPUSCULAR HEMOGLOBIN 26.6 PG (27.0-31.0); MEAN CORPUSCULAR VOLUME 82.9 FL (78-98); MEAN PLATELET VOLUME 9.3 FL (7.4-10.4); MONOCYTES # (AUTO) 0.9 X10'3 (0-0.9); MONOCYTES % (AUTO) 7.6 % (2-12); NEUTROPHILS # (AUTO) 10.1 X10'3 (1.8-7.7); NEUTROPHILS % (AUTO) 84.1 % (42-75); PLATELET COUNT 182 X10'3 (140-440); RED BLOOD COUNT 3.79 X10'6 (4.70-6.10); RED CELL DISTRIBUTION WIDTH 17.6 % (11.5-14.5)
[2019-09-24 08:34] LABS: CLARITY,URINE CLEAR (Clear); COLOR,URINE STRAW (Yellow); GLUCOSE, URINE NEGATIVE (Neg); KETONES,URINE NEGATIVE (Neg); LEUKOCYTE ESTERASE ,URINE NEGATIVE (Neg); NITRITES, URINE NEGATIVE (Neg); OCCULT BLOOD,URINE NEGATIVE (Neg); PH,URINE 5.5 (4.8-8.0); PROTEIN,URINE NEGATIVE (Neg); UA COLLECTION TYPE URINAL; UROBILINOGEN,URINE 0.2 E.U/dL (0.2-1.0)
[2019-09-24] MEDS ORDERED: normal saline 1000ML IV soln IVB ONE (08:35)
[2019-09-24] MEDS ORDERED: LOPE2TAB25 PO (08:44)
[2019-09-24] MEDS ORDERED: QUET-1 PO (08:44)
[2019-09-24 08:51] LABS: ALANINE AMINOTRANSFERASE 32 U/L (12-78); ALBUMIN 2.3 G/DL (3.4-5.0); ALBUMIN/GLOBULIN RATIO 0.9 (1.1-1.5); ALKALINE PHOSPHATASE 80 IU/L (46-116); ANION GAP 8 (8-16); ASPARTATE AMINO TRANSFERASE 17 U/L (10-37); BILIRUBIN,TOTAL 0.4 MG/DL (0.1-1.0); BLOOD UREA NITROGEN 21 MG/DL (7-18); BUN/CREATININE RATIO 21.2 (5.4-32.0); C-REACTIVE PROTEIN 1.01 MG/DL (0.0-0.5); CALCIUM 6.5 MG/DL (8.5-10.1); CHLORIDE 115 MMOL/L (99-107); CREATININE 0.99 MG/DL (0.60-1.10); GLUCOSE 144 MG/DL (70-104); MAGNESIUM 1.4 MG/DL (1.5-2.4); POTASSIUM 3.8 MMOL/L (3.5-5.1); SODIUM 143 MMOL/L (135-145); TOTAL CARBON DIOXIDE 19.9 MMOL/L (24-32); TOTAL PROTEIN 4.9 G/DL (6.4-8.2); eGFR 75 ML/MIN
[2019-09-24] MEDS: normal saline 1000ml 1,000 ML IV ONE ×2 (08:59→09:27)
[2019-09-24] MEDS ORDERED: mag hydrox/Alum hydrox/simeth 30ml oral suspension PO PRN (09:25)
[2019-09-24] MEDS ORDERED: magnesium hydroxide 30ml (MOM) UD suspension PO PRN (09:25)
[2019-09-24] MEDS ORDERED: ondansetron/PF 4mg/2ml inj IV PRN (09:25)
[2019-09-24] MEDS: azithromycin/NS 500mg/250ml 250 ML IV SCH (09:25)
[2019-09-24 10:51] LABS: HEMOGLOBIN A1C 6.4 % (4.5-6.2)
--- NOTE | 2019-09-24 11:30 | NUR ---
Patient in room ORTHO 4006. I have received report from CLARITA FITZPATRICK and had the opportunity to ask questions and assume patient care.
[2019-09-24 11:35] VITALS: BP 124/70
[2019-09-24] MEDS ORDERED: loperamide 2mg capsule PO PRN (11:50)
[2019-09-24] MEDS ORDERED: insulin Lispro (HumaLOG) vial - multi-dose SQ SCH (12:35)
[2019-09-24] MEDS ORDERED: potassium Cl 20 mEq SR tablet PO PRN ×2 (12:35)
[2019-09-24] MEDS ORDERED: glucagon, human recombinant 1mg kit SUBCUT PRN (12:35)
[2019-09-24] MEDS ORDERED: MESSAGE TO PHARMACY PO ONE (12:35)
[2019-09-24] MEDS ORDERED: potassium CL 10mEq/100ml bag 100 ML IV PRN (12:35)
[2019-09-24] MEDS ORDERED: dextrose ORAL solution 15 GM/59 ML bottle PO PRN ×2 (12:35)
[2019-09-24] MEDS ORDERED: dextrose 50%-water 50ml dispensing syringe IV PRN ×2 (12:35)
[2019-09-24] MEDS: normal saline 1000ml 1,000 ML IV SCH ×2 (12:41→20:49)
--- NOTE | 2019-09-24 14:34 | NUR ---
PAGER ID: [phone] MESSAGE: [id number] IS NEGATIVE COVID
[2019-09-24] MEDS: magnesium Cl slow-release 64mg tablet PO PRN (17:07)
[2019-09-24] MEDS: acetaminophen 325mg tablet PO PRN (17:07)
[2019-09-24 18:00] VITALS: BP 145/54
--- NOTE | 2019-09-24 18:25 | NUR ---
Problems reprioritized. Patient report given, questions answered & plan of care reviewed with DONELL FITZPATRICK.
--- NOTE | 2019-09-24 18:30 | NUR ---
Patient in room ORTHO 4013. I have received report from NANTETE Valdovinos and had the opportunity to ask questions and assume patient care.
[2019-09-24] MEDS: quetiapine 100mg tablet PO SCH (20:49)
[2019-09-24] MEDS: heparin, porcine 5000 units/ml vial SQ SCH (20:49)
[2019-09-24] MEDS: insulin glargine (Lantus) pen - multi-dose SQ SCH (21:00)
[2019-09-24 22:00] VITALS: BP 117/51
[2019-09-25] MEDS: magnesium Cl slow-release 64mg tablet PO PRN (02:52)
[2019-09-25 05:35] LABS: BASOPHILS % (AUTO) 0.2 % (0-1); EOSINOPHILS # (AUTO) 0.2 X10'3 (0-0.9); HEMATOCRIT 31.4 % (42.0-52.0); HEMOGLOBIN 10.3 g/dl (14.0-17.9); LYMPHOCYTES # (AUTO) 2.4 X10'3 (1.1-4.8); LYMPHOCYTES % (AUTO) 14.9 % (21-51); MEAN CORPUSCULAR HEMOGLOBIN 26.6 PG (27.0-31.0); MEAN CORPUSCULAR HGB CONC 32.8 g/dL (33.0-36.5); MEAN CORPUSCULAR VOLUME 81.3 FL (78-98); MEAN PLATELET VOLUME 9.7 FL (7.4-10.4); MONOCYTES # (AUTO) 1.3 X10'3 (0-0.9); MONOCYTES % (AUTO) 7.8 % (2-12); NEUTROPHILS # (AUTO) 12.2 X10'3 (1.8-7.7); NEUTROPHILS % (AUTO) 76.1 % (42-75); PLATELET COUNT 176 X10'3 (140-440); RED BLOOD COUNT 3.87 X10'6 (4.70-6.10); RED CELL DISTRIBUTION WIDTH 17.3 % (11.5-14.5)
[2019-09-25 05:52] LABS: ALBUMIN 2.5 G/DL (3.4-5.0); ANION GAP 9 (8-16); BLOOD UREA NITROGEN 21 MG/DL (7-18); BUN/CREATININE RATIO 18.6 (5.4-32.0); CALCIUM 8.5 MG/DL (8.5-10.1); CHLORIDE 108 MMOL/L (99-107); CREATININE 1.13 MG/DL (0.60-1.10); GLUCOSE 126 MG/DL (70-104); POTASSIUM 4.1 MMOL/L (3.5-5.1); SODIUM 140 MMOL/L (135-145); TOTAL CARBON DIOXIDE 22.9 MMOL/L (24-32); eGFR 64 ML/MIN
[2019-09-25 06:00] VITALS: BP 108/39
--- NOTE | 2019-09-25 06:40 | NUR ---
Problems reprioritized. Patient report given, questions answered & plan of care reviewed with NANETTE Gordon.
[2019-09-25 07:04] LABS: MAGNESIUM 1.9 MG/DL (1.5-2.4)
[2019-09-25] MEDS: CefTRIAXone 2gm/D5W 50ml 50 ML IV SCH (07:36)
[2019-09-25] MEDS: heparin, porcine 5000 units/ml vial SQ SCH ×2 (07:46→20:36)
[2019-09-25] MEDS: normal saline 1000ml 1,000 ML IV SCH ×2 (07:47→16:52)
[2019-09-25] MEDS: diltiazem CD 120mg capsule (once-daily) PO SCH (08:00)
[2019-09-25] MEDS: atenolol 50mg tablet PO SCH (08:00)
[2019-09-25] MEDS: HYDROchlorothiazide 25mg tablet PO SCH (08:30)
[2019-09-25] MEDS: spironolactone 25 MG tablet PO SCH (08:30)
[2019-09-25] MEDS: azithromycin/NS 500mg/250ml 250 ML IV SCH (09:49)
[2019-09-25] MEDS ORDERED: FLU VACC QS2019-20 36MOS UP/PF 60 MCG/0.5 ML SYRINGE IMVAC ONE (10:00)
[2019-09-25] MEDS ORDERED: pneumococcal 23-VAL P-sac vacc 25 mcg/0.5ml vial IMVAC ONE (10:00)
[2019-09-25 11:30] VITALS: BP 152/71
[2019-09-25 14:40] VITALS: BP 155/57
--- NOTE | 2019-09-25 14:44 | NUR ---
DM Consult: Pt A1C less than 7 and not appropriate for DM ed at this time. Addendum: 09/25/19 at [address] Amended: Links added.
[2019-09-25] MEDS: lisinopril 20mg tablet PO SCH (14:45)
[2019-09-25] MEDS: acetaminophen 325mg tablet PO PRN ×2 (14:46→21:33)
[2019-09-25 18:00] VITALS: BP 127/42
--- NOTE | 2019-09-25 18:35 | NUR ---
Problems reprioritized. Patient report given, questions answered & plan of care reviewed with NANETTE BRONSON.
--- NOTE | 2019-09-25 18:50 | NUR ---
Patient in room ORTHO 4013. I have received report from Heidi FITZPATRICK and had the opportunity to ask questions and assume patient care.
[2019-09-25] MEDS: quetiapine 100mg tablet PO SCH (20:36)
[2019-09-25] MEDS: insulin glargine (Lantus) pen - multi-dose SQ SCH (21:00)
[2019-09-25 21:30] VITALS: BP 132/40
[2019-09-26] MEDS: normal saline 1000ml 1,000 ML IV SCH ×2 (03:57→16:12)
[2019-09-26 05:17] LABS: BASOPHILS % (AUTO) 0.2 % (0-1); EOSINOPHILS # (AUTO) 0.2 X10'3 (0-0.9); EOSINOPHILS % (AUTO) 1.3 % (0-6); HEMATOCRIT 36.3 % (42.0-52.0); LYMPHOCYTES # (AUTO) 2.4 X10'3 (1.1-4.8); LYMPHOCYTES % (AUTO) 16.4 % (21-51); MEAN CORPUSCULAR HGB CONC 32.9 g/dL (33.0-36.5); MEAN PLATELET VOLUME 9.8 FL (7.4-10.4); MONOCYTES # (AUTO) 1.3 X10'3 (0-0.9); MONOCYTES % (AUTO) 8.8 % (2-12); NEUTROPHILS # (AUTO) 10.7 X10'3 (1.8-7.7); NEUTROPHILS % (AUTO) 73.3 % (42-75); PLATELET COUNT 190 X10'3 (140-440); RED BLOOD COUNT 4.43 X10'6 (4.70-6.10); RED CELL DISTRIBUTION WIDTH 17.9 % (11.5-14.5); WHITE BLOOD COUNT 14.6 X10'3 (4.5-11.0)
[2019-09-26 05:30] VITALS: BP 147/48
[2019-09-26 05:32] LABS: ALBUMIN 2.8 G/DL (3.4-5.0); ANION GAP 10 (8-16); BLOOD UREA NITROGEN 15 MG/DL (7-18); BUN/CREATININE RATIO 11.8 (5.4-32.0); CALCIUM 8.9 MG/DL (8.5-10.1); CHLORIDE 107 MMOL/L (99-107); CREATININE 1.27 MG/DL (0.60-1.10); GLUCOSE 122 MG/DL (70-104); POTASSIUM 4.4 MMOL/L (3.5-5.1); SODIUM 140 MMOL/L (135-145); TOTAL CARBON DIOXIDE 23.3 MMOL/L (24-32); eGFR 56 ML/MIN
--- NOTE | 2019-09-26 06:36 | NUR ---
Problems reprioritized. Patient report given, questions answered & plan of care reviewed with Betty FITZPATRICK.
--- NOTE | 2019-09-26 06:44 | NUR ---
Patient in room ORTHO 4013. I have received report from Stephani FITZPATRICK and had the opportunity to ask questions and assume patient care.
[2019-09-26 07:54] VITALS: BP 147/48
[2019-09-26] MEDS: CefTRIAXone 2gm/D5W 50ml 50 ML IV SCH (08:14)
[2019-09-26] MEDS: atenolol 50mg tablet PO SCH (08:26)
[2019-09-26] MEDS: spironolactone 25 MG tablet PO SCH (08:26)
[2019-09-26] MEDS: HYDROchlorothiazide 25mg tablet PO SCH (08:26)
[2019-09-26] MEDS: acetaminophen 325mg tablet PO PRN ×2 (08:31→15:00)
[2019-09-26] MEDS: heparin, porcine 5000 units/ml vial SQ SCH (08:31)
[2019-09-26] MEDS: diltiazem CD 120mg capsule (once-daily) PO SCH (08:32)
[2019-09-26] MEDS: lisinopril 20mg tablet PO SCH (08:32)
[2019-09-26] MEDS: azithromycin/NS 500mg/250ml 250 ML IV SCH (08:48)
--- NOTE | 2019-09-26 10:02 | NUR ---
Page Sent PAGER ID: [phone] MESSAGE: Jose FITZPATRICK [phone]- [phone] Elliott Faye -pt has blood tinged, sputum.
[2019-09-26 10:10] VITALS: BP 100/52
[2019-09-26] MEDS: NUT.TX.GLUC.INTOLER,LAC-FR,SOY (GLUCERNA) 237 ML PO SCH ×2 (13:00→18:00)
[2019-09-26 18:00] VITALS: BP_SYST 104; BP_SYST 110; BP_DIAS 47; BP_DIAS 61
--- NOTE | 2019-09-26 18:00 | NUR ---
RECEIVED REPORT FROM DENNIS FITZPATRICK AND ASSUMED PATIENT CARE
--- NOTE | 2019-09-26 18:10 | NUR ---
Problems reprioritized. Patient report given, questions answered & plan of care reviewed with Maricruz FITZPATRICK.
--- NOTE | 2019-09-26 18:10 | NUR ---
MANUEL Redd RN...REVIEWED AND AGREE WITH CHARTING
[2019-09-26] MEDS: quetiapine 100mg tablet PO SCH (20:43)
[2019-09-26] MEDS: insulin glargine (Lantus) pen - multi-dose SQ SCH (21:00)
[2019-09-27] MEDS: normal saline 1000ml 1,000 ML IV SCH (03:22)
[2019-09-27 05:51] LABS: BASOPHILS % (AUTO) 0.5 % (0-1); EOSINOPHILS # (AUTO) 0.4 X10'3 (0-0.9); HEMATOCRIT 27.4 % (42.0-52.0); LYMPHOCYTES # (AUTO) 2.3 X10'3 (1.1-4.8); LYMPHOCYTES % (AUTO) 25.2 % (21-51); MEAN CORPUSCULAR HEMOGLOBIN 26.7 PG (27.0-31.0); MEAN CORPUSCULAR HGB CONC 32.8 g/dL (33.0-36.5); MEAN CORPUSCULAR VOLUME 81.3 FL (78-98); MEAN PLATELET VOLUME 9.8 FL (7.4-10.4); MONOCYTES % (AUTO) 10.9 % (2-12); NEUTROPHILS # (AUTO) 5.3 X10'3 (1.8-7.7); NEUTROPHILS % (AUTO) 59.4 % (42-75); PLATELET COUNT 172 X10'3 (140-440); RED BLOOD COUNT 3.36 X10'6 (4.70-6.10); RED CELL DISTRIBUTION WIDTH 17.9 % (11.5-14.5)
[2019-09-27 05:58] LABS: ALBUMIN 2.1 G/DL (3.4-5.0); ANION GAP 7 (8-16); BLOOD UREA NITROGEN 18 MG/DL (7-18); BUN/CREATININE RATIO 13.6 (5.4-32.0); CALCIUM 8.1 MG/DL (8.5-10.1); CHLORIDE 108 MMOL/L (99-107); CREATININE 1.32 MG/DL (0.60-1.10); GLUCOSE 110 MG/DL (70-104); POTASSIUM 4.1 MMOL/L (3.5-5.1); SODIUM 137 MMOL/L (135-145); eGFR 53 ML/MIN
[2019-09-27 06:00] VITALS: BP 93/45
--- NOTE | 2019-09-27 06:54 | NUR ---
Patient in room ORTHO 4013A. I have received report from NANETTE JOHNSON and had the opportunity to ask questions and assume patient care.
[2019-09-27] MEDS: lisinopril 20mg tablet PO SCH (08:00)
[2019-09-27] MEDS: diltiazem CD 120mg capsule (once-daily) PO SCH (08:00)
[2019-09-27] MEDS: NUT.TX.GLUC.INTOLER,LAC-FR,SOY (GLUCERNA) 237 ML PO SCH ×2 (08:00→13:00)
[2019-09-27] MEDS: HYDROchlorothiazide 25mg tablet PO SCH (08:30)
[2019-09-27] MEDS: spironolactone 25 MG tablet PO SCH (08:30)
[2019-09-27] MEDS: CefTRIAXone 2gm/D5W 50ml 50 ML IV SCH (09:18)
[2019-09-27] MEDS: atenolol 50mg tablet PO SCH (09:23)
[2019-09-27 10:00] VITALS: BP 110/58
[2019-09-27] MEDS: azithromycin/NS 500mg/250ml 250 ML IV SCH (12:12)
[2019-09-27 13:12] LABS: OCCULT BLOOD STOOL NEGATIVE (Neg)
[2019-09-27] MEDS ORDERED: CEFD300C3 PO (15:26)
[2019-09-27] MEDS ORDERED: AZIT500T2 PO (15:27)
--- NOTE | 2019-09-27 16:17 | NUR ---
Page Sent PAGER ID: [phone] MESSAGE: DENNIS [id number]-RE: NATE MEJIAS [id number]...PT NEEDS HAND WRITTEN RX FOR [facility], I CAN COME GET THEM?
--- NOTE | 2019-09-27 17:52 | NUR ---
DC INSTRUCTIONS GIVEN TO PT, PT UNDERSTANDS AND GIVEN HAND WRITTEN RX. IV REMOVED INTACT, NO COMPLICATIONS. PT WHEELED DOWN TO [facility] IN STABLE CONDITION.
--- NOTE | 2019-09-27 17:53 | NUR ---
MANUEL MOLINA RN, REVIEWED AND AGREE WITH CHARTING
== END 2019-09-27 17:35 | disposition home or self-care (01) | DRG 871 ==
LOC: ER 06:24 → ED HOLD 09:22 → UNDOADMIN 09:22 → ED HOLD 09:31 → ORTHO 4S 11:32
PROVIDERS: ADMIT Family Medicine; ATTEND Family Medicine
DX: A41.9 Sepsis, unspecified organism (principal); J18.9 Pneumonia, unspecified organism; L97.429 Non-pressure chronic ulcer of left heel and midfoot with unspecified severity; I10 Essential (primary) hypertension; K21.9 Gastro-esophageal reflux disease without esophagitis; H26.9 Unspecified cataract; F10.20 Alcohol dependence, uncomplicated; E11.621 Type 2 diabetes mellitus with foot ulcer; E11.65 Type 2 diabetes mellitus with hyperglycemia; Z87.891 Personal history of nicotine dependence; Z90.49 Acquired absence of other specified parts of digestive tract
CPT/HCPCS: 36415; 71045; 80048; 80053; 81003; 82272; 82948; 83036; 83605; 83735; 84145; 85025; 86140; 87040; 87081; 87635; 93005; 93306; 96365; 99285; G0378; J0456; J0696; J1644; J1815; J7030; Q2037

== ENCOUNTER 2019-10-05 09:40 | Day surgery (SDC) | payer MEDICARE ==
[~2019-10-05 09:40] MED LIST changes: -ASPI-845 PO; -ATOR10TA PO; +AZIT500T2 PO; +CEFD300C3 PO; +LOPE2TAB25 PO; -MULT-933 PO; +QUET-1 PO; -QUET50TA22 PO
== END 2019-10-05 13:03 | disposition home or self-care (01) ==
LOC: WOUND CARE 09:40
PROVIDERS: ATTEND Nurse Practitioner
DX: E11.621 Type 2 diabetes mellitus with foot ulcer (principal); L97.522 Non-pressure chronic ulcer of other part of left foot with fat layer exposed; E11.40 Type 2 diabetes mellitus with diabetic neuropathy, unspecified; E11.36 Type 2 diabetes mellitus with diabetic cataract; I25.10 Atherosclerotic heart disease of native coronary artery without angina pectoris; F32.9 Major depressive disorder, single episode, unspecified; F10.10 Alcohol abuse, uncomplicated; Z95.0 Presence of cardiac pacemaker; Z87.891 Personal history of nicotine dependence; Z79.82 Long term (current) use of aspirin; Z79.899 Other long term (current) drug therapy; Z90.49 Acquired absence of other specified parts of digestive tract; Z89.422 Acquired absence of other left toe(s)
CPT/HCPCS: 82948; 93922; 93925; 93970; G0463

== ENCOUNTER 2019-10-07 13:24 | Outpatient (CLI) | payer MEDICARE ==
[2019-10-07] MEDS ORDERED: LIDOcaine 2% 5ml jelly ONE (13:35)
[2019-10-07 14:45] LABS: BASOPHILS # (AUTO) 0.1 X10'3 (0-0.2); BASOPHILS % (AUTO) 1.3 % (0-1); EOSINOPHILS # (AUTO) 0.6 X10'3 (0-0.9); EOSINOPHILS % (AUTO) 6.3 % (0-6); LYMPHOCYTES # (AUTO) 3.4 X10'3 (1.1-4.8); LYMPHOCYTES % (AUTO) 33.4 % (21-51); MEAN CORPUSCULAR HEMOGLOBIN 26.7 PG (27.0-31.0); MEAN CORPUSCULAR HGB CONC 32.2 g/dL (33.0-36.5); MEAN PLATELET VOLUME 8.4 FL (7.4-10.4); MONOCYTES # (AUTO) 0.7 X10'3 (0-0.9); MONOCYTES % (AUTO) 6.4 % (2-12); NEUTROPHILS # (AUTO) 5.3 X10'3 (1.8-7.7); NEUTROPHILS % (AUTO) 52.6 % (42-75); PRE OP HEMATOCRIT 34.8 % (42.0-52.0); PRE OP HEMOGLOBIN 11.2 g/dL (14.0-17.9); PRE OP PLATELET COUNT 438 X10'3 (140-440); RED BLOOD COUNT 4.19 X10'6 (4.70-6.10); RED CELL DISTRIBUTION WIDTH 18.1 % (11.5-14.5)
[2019-10-07 14:54] LABS: PRE OP PARTIAL THROMB. TIME 29 SECONDS (22-32)
[2019-10-07 15:07] LABS: ALANINE AMINOTRANSFERASE 19 U/L (12-78); ALBUMIN/GLOBULIN RATIO 0.9 (1.1-1.5); ALKALINE PHOSPHATASE 97 IU/L (46-116); ANION GAP 6 (8-16); ASPARTATE AMINO TRANSFERASE 13 U/L (10-37); BILIRUBIN,TOTAL 0.2 MG/DL (0.1-1.0); BLOOD UREA NITROGEN 29 MG/DL (7-18); BUN/CREATININE RATIO 21.3 (5.4-32.0); CHLORIDE 109 MMOL/L (99-107); CREATININE 1.36 MG/DL (0.60-1.10); GLUCOSE 121 MG/DL (70-104); POTASSIUM 5.5 MMOL/L (3.5-5.1); SODIUM 140 MMOL/L (135-145); TOTAL CARBON DIOXIDE 25.5 MMOL/L (24-32); TOTAL PROTEIN 6.3 G/DL (6.4-8.2); eGFR 52 ML/MIN
== END 2019-10-07 14:33 | disposition home or self-care (01) ==
LOC: WOUND CARE 13:24
PROVIDERS: ATTEND Nurse Practitioner
DX: E11.621 Type 2 diabetes mellitus with foot ulcer (principal); L97.522 Non-pressure chronic ulcer of other part of left foot with fat layer exposed; E11.40 Type 2 diabetes mellitus with diabetic neuropathy, unspecified; E11.36 Type 2 diabetes mellitus with diabetic cataract; I25.10 Atherosclerotic heart disease of native coronary artery without angina pectoris; F32.9 Major depressive disorder, single episode, unspecified; F10.10 Alcohol abuse, uncomplicated; Z95.0 Presence of cardiac pacemaker; Z87.891 Personal history of nicotine dependence; Z79.82 Long term (current) use of aspirin; Z79.899 Other long term (current) drug therapy; Z90.49 Acquired absence of other specified parts of digestive tract; Z79.01 Long term (current) use of anticoagulants; Z89.422 Acquired absence of other left toe(s)
CPT/HCPCS: 36415; 80053; 85025; 85610; 85730; G0463

== ENCOUNTER 2019-10-14 05:25 | Day surgery (SDC) | payer MEDICARE ==
[2019-10-14] VITALS (13 sets, daily range): BP systolic 88–107; BP diastolic 56–68
[~2019-10-14] VITALS: Ht 175.3 cm; Wt 89.3 kg
[~2019-10-14 05:25] MED LIST changes: -AZIT500T2 PO; -CEFD300C3 PO; -LOPE2TAB25 PO; +OMEP20CA15 PO; +ringers solution, lacted 1,000 ML IV SCH
[2019-10-14] MEDS ORDERED: MESSAGE TO NURSING IV ONE (05:30)
[2019-10-14] MEDS ORDERED: famotidine 20mg tablet PO ONE (05:30)
[2019-10-14] MEDS ORDERED: DOCUMENT DATE & TIME OF BETA-BLOCKER PO ONE (05:30)
[2019-10-14] MEDS ORDERED: bacitracin 15gm ointment TP ONE (06:24)
[2019-10-14] MEDS ORDERED: BUPIVAcaine/PF 2.5 mg/ml (0.25%) 30ml vial ONE (06:24)
[2019-10-14] MEDS ORDERED: ceFAZolin 2gm in dextrose, iso 50 ML IV ONE (06:40)
[2019-10-14] MEDS ORDERED: ceFAZolin 2gm in dextrose, iso 100 ML IV ONE (06:43)
[2019-10-14] MEDS ORDERED: fentaNYL/PF 50MCG/1 ML 2ML syringe ONE ×2 (07:15→07:33)
[2019-10-14] MEDS ORDERED: MIDAZolam 5mg/5ml vial ONE (07:16)
[2019-10-14] MEDS ORDERED: ketamine 50mg/5ml syringe ONE (07:25)
[2019-10-14] MEDS ORDERED: propofol inj 20 ML IV ONE (08:15)
[2019-10-14] MEDS ORDERED: phenylephrine 10mg/ml inj. ONE (08:15)
[2019-10-14] MEDS ORDERED: ePHEDrine 50MG/ML INJ. ONE (08:15)
[2019-10-14] MEDS ORDERED: LIDOcaine 1%/PF 5ML 10 MG/ML VIAL ONE (08:15)
--- NOTE | 2019-10-14 08:20 | NUR ---
Received from OR via BED, accompanied by Anesthesiologist DR CARDONA-- and report given by Anesthesiolgist. PATIENT A&OX4, DENIES PAIN, V/S WNL, NEUROVASCULAR CHECKS INTACT, 20G PIV LUE, SCD ON, WALKING BBOT AND DRESSING TO LEFT FOOT CDI
[2019-10-14] MEDS ORDERED: HYDR-4353 PO (09:56)
--- NOTE | 2019-10-14 10:00 | NUR ---
PATIENT A&OX4, DENIES PAIN, V/S WNL, NEUROVASCULAR CHECKS INTACT, 20G PIV LUE D/C, SCD OFF, WALKING BBOT AND DRESSING TO LEFT FOOT CDI . SCRIPT GIVEN FOR PAIN MEDS. I HAVE REVIEWED D/C INSTRUCTIONS WITH PATIENT AND FAMILY AND THEY HAVE VERBALIZED UNDERSTANDING. PATIENT D/C HOME WITH ALL BELONGINGS AND FAMILY GAVE TRANSPORT HOME.
== END 2019-10-14 10:00 | disposition home or self-care (01) ==
LOC: PAS 05:25
PROVIDERS: ATTEND Podiatrist Foot & Ankle Surgery
DX: E11.621 Type 2 diabetes mellitus with foot ulcer (principal); L97.529 Non-pressure chronic ulcer of other part of left foot with unspecified severity; Z87.891 Personal history of nicotine dependence; Z79.899 Other long term (current) drug therapy; Z90.49 Acquired absence of other specified parts of digestive tract; Z72.89 Other problems related to lifestyle
CPT/HCPCS: 28805; 71045; 82948; 93005; A6223; J2250; J2370; J2704; J3010; J3490; J7120; A4618; A6253; A6449; A7000

== ENCOUNTER 2019-10-20 08:48 | Outpatient (CLI) | payer MEDICARE ==
[~2019-10-20 08:48] MED LIST changes: +HYDR-4353 PO; -ringers solution, lacted 1,000 ML IV SCH
== END 2019-10-20 09:26 | disposition home or self-care (01) ==
LOC: WOUND CARE 08:48 → EDSTATUS 09:00 → WOUND CARE 09:26
PROVIDERS: ATTEND Nurse Practitioner
DX: T87.89 Other complications of amputation stump (principal); E11.621 Type 2 diabetes mellitus with foot ulcer; L97.528 Non-pressure chronic ulcer of other part of left foot with other specified severity; E11.40 Type 2 diabetes mellitus with diabetic neuropathy, unspecified; E11.36 Type 2 diabetes mellitus with diabetic cataract; E11.65 Type 2 diabetes mellitus with hyperglycemia; I25.10 Atherosclerotic heart disease of native coronary artery without angina pectoris; F32.9 Major depressive disorder, single episode, unspecified; F10.10 Alcohol abuse, uncomplicated; Z95.0 Presence of cardiac pacemaker; Z87.891 Personal history of nicotine dependence; Z79.82 Long term (current) use of aspirin; Z79.899 Other long term (current) drug therapy; Z90.49 Acquired absence of other specified parts of digestive tract; Z79.01 Long term (current) use of anticoagulants; Y83.5 Amputation of limb(s) as the cause of abnormal reaction of the patient, or of later complication, without mention of misadventure at the time of the procedure
CPT/HCPCS: 36416; G0463

== ENCOUNTER 2019-10-21 14:00 | Outpatient (CLI) | payer MEDICARE | END 2019-10-21 15:07 | disposition home or self-care (01) | LOC: WOUND CARE 14:00 → EDSTATUS 14:00 → WOUND CARE 15:07 | PROVIDERS: ATTEND Nurse Practitioner | DX: T87.89 Other complications of amputation stump (principal); E11.621 Type 2 diabetes mellitus with foot ulcer; L97.521 Non-pressure chronic ulcer of other part of left foot limited to breakdown of skin; E11.40 Type 2 diabetes mellitus with diabetic neuropathy, unspecified; E11.36 Type 2 diabetes mellitus with diabetic cataract; E11.65 Type 2 diabetes mellitus with hyperglycemia; I25.10 Atherosclerotic heart disease of native coronary artery without angina pectoris; F32.9 Major depressive disorder, single episode, unspecified; F10.10 Alcohol abuse, uncomplicated; Z95.0 Presence of cardiac pacemaker; Z87.891 Personal history of nicotine dependence; Z79.82 Long term (current) use of aspirin; Z79.899 Other long term (current) drug therapy; Z90.49 Acquired absence of other specified parts of digestive tract; Z79.01 Long term (current) use of anticoagulants; Y83.5 Amputation of limb(s) as the cause of abnormal reaction of the patient, or of later complication, without mention of misadventure at the time of the procedure | CPT/HCPCS: 36416; 82948; G0463 ==

== ENCOUNTER 2019-10-25 11:01 | Outpatient (CLI) | payer MEDICARE | END 2019-10-25 12:27 | disposition home or self-care (01) | LOC: WOUND CARE 11:01 | PROVIDERS: ATTEND Nurse Practitioner Family | DX: T87.89 Other complications of amputation stump (principal); E11.621 Type 2 diabetes mellitus with foot ulcer; L97.521 Non-pressure chronic ulcer of other part of left foot limited to breakdown of skin; E11.40 Type 2 diabetes mellitus with diabetic neuropathy, unspecified; E11.36 Type 2 diabetes mellitus with diabetic cataract; E11.65 Type 2 diabetes mellitus with hyperglycemia; I25.10 Atherosclerotic heart disease of native coronary artery without angina pectoris; F32.9 Major depressive disorder, single episode, unspecified; F10.10 Alcohol abuse, uncomplicated; Z95.0 Presence of cardiac pacemaker; Z87.891 Personal history of nicotine dependence; Z79.82 Long term (current) use of aspirin; Z79.899 Other long term (current) drug therapy; Z90.49 Acquired absence of other specified parts of digestive tract; Z79.01 Long term (current) use of anticoagulants; Y83.5 Amputation of limb(s) as the cause of abnormal reaction of the patient, or of later complication, without mention of misadventure at the time of the procedure | CPT/HCPCS: 36416; 82948; G0463 ==

== ENCOUNTER 2019-10-28 10:15 | Outpatient (CLI) | payer MEDICARE | END 2019-10-28 11:42 | disposition home or self-care (01) | LOC: WOUND CARE 10:15 → EDSTATUS 10:20 → WOUND CARE 11:42 | PROVIDERS: ATTEND Nurse Practitioner | DX: T87.89 Other complications of amputation stump (principal); E11.621 Type 2 diabetes mellitus with foot ulcer; L97.521 Non-pressure chronic ulcer of other part of left foot limited to breakdown of skin; E11.40 Type 2 diabetes mellitus with diabetic neuropathy, unspecified; E11.36 Type 2 diabetes mellitus with diabetic cataract; E11.65 Type 2 diabetes mellitus with hyperglycemia; I25.10 Atherosclerotic heart disease of native coronary artery without angina pectoris; F32.9 Major depressive disorder, single episode, unspecified; F10.10 Alcohol abuse, uncomplicated; Z95.0 Presence of cardiac pacemaker; Z87.891 Personal history of nicotine dependence; Z79.82 Long term (current) use of aspirin; Z79.899 Other long term (current) drug therapy; Z90.49 Acquired absence of other specified parts of digestive tract; Z79.01 Long term (current) use of anticoagulants; Y83.5 Amputation of limb(s) as the cause of abnormal reaction of the patient, or of later complication, without mention of misadventure at the time of the procedure | CPT/HCPCS: 36416; 82948; G0463 ==

== ENCOUNTER 2019-11-04 10:36 | Day surgery (SDC) | payer MEDICARE ==
[2019-11-04] MEDS ORDERED: LIDOcaine 2% 5ml jelly ONE (10:55)
== END 2019-11-04 13:37 | disposition home or self-care (01) ==
LOC: WOUND CARE 10:36
PROVIDERS: ATTEND Nurse Practitioner
DX: T87.89 Other complications of amputation stump (principal); E11.621 Type 2 diabetes mellitus with foot ulcer; L97.521 Non-pressure chronic ulcer of other part of left foot limited to breakdown of skin; E11.40 Type 2 diabetes mellitus with diabetic neuropathy, unspecified; E11.36 Type 2 diabetes mellitus with diabetic cataract; E11.65 Type 2 diabetes mellitus with hyperglycemia; I25.10 Atherosclerotic heart disease of native coronary artery without angina pectoris; F32.9 Major depressive disorder, single episode, unspecified; F10.10 Alcohol abuse, uncomplicated; Z95.0 Presence of cardiac pacemaker; Z87.891 Personal history of nicotine dependence; Z79.82 Long term (current) use of aspirin; Z79.899 Other long term (current) drug therapy; Z90.49 Acquired absence of other specified parts of digestive tract; Z79.01 Long term (current) use of anticoagulants; Y83.5 Amputation of limb(s) as the cause of abnormal reaction of the patient, or of later complication, without mention of misadventure at the time of the procedure
CPT/HCPCS: 11042; 36416; 82948; 87070; 87075; 87077; 87102; 87186

== ENCOUNTER 2019-11-09 10:40 | Day surgery (SDC) | payer MEDICARE ==
[2019-11-09] MEDS ORDERED: LIDOcaine 2% 5ml jelly ONE (11:02)
== END 2019-11-09 13:19 | disposition home or self-care (01) ==
LOC: WOUND CARE 10:40
PROVIDERS: ATTEND Nurse Practitioner
DX: T87.89 Other complications of amputation stump (principal); E11.621 Type 2 diabetes mellitus with foot ulcer; L97.522 Non-pressure chronic ulcer of other part of left foot with fat layer exposed; E11.40 Type 2 diabetes mellitus with diabetic neuropathy, unspecified; E11.36 Type 2 diabetes mellitus with diabetic cataract; E11.65 Type 2 diabetes mellitus with hyperglycemia; I25.10 Atherosclerotic heart disease of native coronary artery without angina pectoris; F32.9 Major depressive disorder, single episode, unspecified; F10.10 Alcohol abuse, uncomplicated; Z95.0 Presence of cardiac pacemaker; Z87.891 Personal history of nicotine dependence; Z79.82 Long term (current) use of aspirin; Z79.899 Other long term (current) drug therapy; Z90.49 Acquired absence of other specified parts of digestive tract; Z79.01 Long term (current) use of anticoagulants; Y83.5 Amputation of limb(s) as the cause of abnormal reaction of the patient, or of later complication, without mention of misadventure at the time of the procedure
CPT/HCPCS: 36416; 73630; 82948; 97597

== ENCOUNTER 2019-11-11 13:20 | Outpatient (CLI) | payer MEDICARE | END 2019-11-11 14:30 | disposition home or self-care (01) | LOC: EDSTATUS 13:20 → WOUND CARE 13:20 | PROVIDERS: ATTEND Nurse Practitioner | DX: T87.89 Other complications of amputation stump (principal); E11.621 Type 2 diabetes mellitus with foot ulcer; L97.522 Non-pressure chronic ulcer of other part of left foot with fat layer exposed; E11.40 Type 2 diabetes mellitus with diabetic neuropathy, unspecified; E11.36 Type 2 diabetes mellitus with diabetic cataract; E11.65 Type 2 diabetes mellitus with hyperglycemia; I25.10 Atherosclerotic heart disease of native coronary artery without angina pectoris; F32.9 Major depressive disorder, single episode, unspecified; F10.10 Alcohol abuse, uncomplicated; Z95.0 Presence of cardiac pacemaker; Z87.891 Personal history of nicotine dependence; Z79.82 Long term (current) use of aspirin; Z79.899 Other long term (current) drug therapy; Z90.49 Acquired absence of other specified parts of digestive tract; Z79.01 Long term (current) use of anticoagulants; Y83.5 Amputation of limb(s) as the cause of abnormal reaction of the patient, or of later complication, without mention of misadventure at the time of the procedure | CPT/HCPCS: 97597; G0463 ==

== ENCOUNTER 2019-11-25 10:55 | Day surgery (SDC) | payer MEDICARE ==
[~2019-11-25 10:55] MED LIST changes: -HYDR-4353 PO
[2019-11-25 12:00] LABS: BASOPHILS # (AUTO) 0.1 X10'3 (0-0.2); BASOPHILS % (AUTO) 0.7 % (0-1); EOSINOPHILS % (AUTO) 0.3 % (0-6); HEMATOCRIT 32.7 % (42.0-52.0); HEMOGLOBIN 10.9 g/dl (14.0-17.9); LYMPHOCYTES % (AUTO) 32.3 % (21-51); MEAN CORPUSCULAR HEMOGLOBIN 28.4 PG (27.0-31.0); MEAN CORPUSCULAR HGB CONC 33.3 g/dL (33.0-36.5); MEAN CORPUSCULAR VOLUME 85.5 FL (78-98); MEAN PLATELET VOLUME 7.6 FL (7.4-10.4); MONOCYTES # (AUTO) 1.1 X10'3 (0-0.9); MONOCYTES % (AUTO) 12.3 % (2-12); NEUTROPHILS % (AUTO) 54.4 % (42-75); PLATELET COUNT 239 X10'3 (140-440); RED BLOOD COUNT 3.83 X10'6 (4.70-6.10); RED CELL DISTRIBUTION WIDTH 20.9 % (11.5-14.5); WHITE BLOOD COUNT 9.3 X10'3 (4.5-11.0)
[2019-11-25 12:19] LABS: ALANINE AMINOTRANSFERASE 51 U/L (12-78); ALBUMIN 2.8 G/DL (3.4-5.0); ALKALINE PHOSPHATASE 132 IU/L (46-116); ANION GAP 10 (8-16); ASPARTATE AMINO TRANSFERASE 57 U/L (10-37); BILIRUBIN,TOTAL 0.5 MG/DL (0.1-1.0); BLOOD UREA NITROGEN 24 MG/DL (7-18); BUN/CREATININE RATIO 17.5 (5.4-32.0); CALCIUM 8.1 MG/DL (8.5-10.1); CHLORIDE 97 MMOL/L (99-107); CREATININE 1.37 MG/DL (0.60-1.10); GLUCOSE 108 MG/DL (70-104); POTASSIUM 3.8 MMOL/L (3.5-5.1); SODIUM 134 MMOL/L (135-145); TOTAL CARBON DIOXIDE 26.7 MMOL/L (24-32); TOTAL PROTEIN 5.5 G/DL (6.4-8.2); eGFR 51 ML/MIN
[2019-11-25 12:37] LABS: PLATELET ESTIMATE NORMAL
[2019-11-25 12:38] LABS: ANISOCYTOSIS 3+; ELLIPTOCYTES 1+; HYPOCHROMASIA 1+
== END 2019-11-25 11:52 | disposition home or self-care (01) ==
LOC: WOUND CARE 10:55
PROVIDERS: ATTEND Nurse Practitioner
DX: E11.621 Type 2 diabetes mellitus with foot ulcer (principal); L97.525 Non-pressure chronic ulcer of other part of left foot with muscle involvement without evidence of necrosis; E11.40 Type 2 diabetes mellitus with diabetic neuropathy, unspecified; E11.36 Type 2 diabetes mellitus with diabetic cataract; I25.10 Atherosclerotic heart disease of native coronary artery without angina pectoris; F32.9 Major depressive disorder, single episode, unspecified; F10.10 Alcohol abuse, uncomplicated; Z95.0 Presence of cardiac pacemaker; Z87.891 Personal history of nicotine dependence; Z90.49 Acquired absence of other specified parts of digestive tract; Z79.01 Long term (current) use of anticoagulants
CPT/HCPCS: 11043; 36415; 36416; 80053; 82652; 82948; 85025; 85651; 86140

== ENCOUNTER 2019-11-27 13:50 | Emergency (ER) | payer MEDICARE ==
[~2019-11-27] VITALS: Ht 177.8 cm; Wt 81.8 kg
[2019-11-27 14:50] VITALS: BP 128/66
--- NOTE | 2019-11-27 14:54 | NUR ---
Pt. has no specific complaint, just a feeling of being "unwell"
[2019-11-27] MEDS ORDERED: ondansetron 4mg rapidly disintigrating tab PO ONE (15:10)
[2019-11-27] MEDS ORDERED: famotidine 20mg tablet PO ONE (15:10)
[2019-11-27 15:29] LABS: CLARITY,URINE CLEAR (Clear); COLOR,URINE STRAW (Yellow); GLUCOSE, URINE NEGATIVE (Neg); KETONES,URINE NEGATIVE (Neg); LEUKOCYTE ESTERASE ,URINE NEGATIVE (Neg); NITRITES, URINE NEGATIVE (Neg); OCCULT BLOOD,URINE TRACE-INTACT (Neg); PH,URINE 5.5 (4.8-8.0); PROTEIN,URINE NEGATIVE (Neg); UROBILINOGEN,URINE 0.2 E.U/dL (0.2-1.0)
[2019-11-27 15:30] LABS: UA COLLECTION TYPE NON-SPECIFIED
[2019-11-27 15:31] LABS: BASOPHILS # (AUTO) 0.1 X10'3 (0-0.2); EOSINOPHILS # (AUTO) 0.1 X10'3 (0-0.9); EOSINOPHILS % (AUTO) 1.5 % (0-6); HEMATOCRIT 31.8 % (42.0-52.0); HEMOGLOBIN 10.5 g/dl (14.0-17.9); LYMPHOCYTES # (AUTO) 3.6 X10'3 (1.1-4.8); LYMPHOCYTES % (AUTO) 44.6 % (21-51); MEAN CORPUSCULAR HEMOGLOBIN 28.9 PG (27.0-31.0); MEAN CORPUSCULAR HGB CONC 33.1 g/dL (33.0-36.5); MEAN CORPUSCULAR VOLUME 87.3 FL (78-98); MEAN PLATELET VOLUME 7.3 FL (7.4-10.4); MONOCYTES # (AUTO) 0.7 X10'3 (0-0.9); MONOCYTES % (AUTO) 8.7 % (2-12); NEUTROPHILS # (AUTO) 3.6 X10'3 (1.8-7.7); NEUTROPHILS % (AUTO) 44.2 % (42-75); PLATELET COUNT 229 X10'3 (140-440); RED BLOOD COUNT 3.65 X10'6 (4.70-6.10); RED CELL DISTRIBUTION WIDTH 21.3 % (11.5-14.5); WHITE BLOOD COUNT 8.2 X10'3 (4.5-11.0)
[2019-11-27 15:36] LABS: BACTERIA,URINE FEW /HPF (Neg); MUCUS STRANDS FEW /LPF (Neg); RBC,URINE 0-2 /HPF (0-2); SQUAMOUS EPITHELIAL CELL,UR FEW /LPF (FEW); WBC,URINE 0-4 /HPF (0-4)
[2019-11-27 15:43] LABS: ALANINE AMINOTRANSFERASE 52 U/L (12-78); ALBUMIN 2.6 G/DL (3.4-5.0); ALKALINE PHOSPHATASE 123 IU/L (46-116); ANION GAP 6 (8-16); ASPARTATE AMINO TRANSFERASE 55 U/L (10-37); BILIRUBIN,TOTAL 0.3 MG/DL (0.1-1.0); BLOOD UREA NITROGEN 16 MG/DL (7-18); BUN/CREATININE RATIO 15.7 (5.4-32.0); CALCIUM 7.8 MG/DL (8.5-10.1); CHLORIDE 101 MMOL/L (99-107); CREATININE 1.02 MG/DL (0.60-1.10); GLUCOSE 107 MG/DL (70-104); LIPASE 352 U/L (73-393); POTASSIUM 4.7 MMOL/L (3.5-5.1); SODIUM 135 MMOL/L (135-145); TOTAL CARBON DIOXIDE 28.4 MMOL/L (24-32); TOTAL PROTEIN 5.3 G/DL (6.4-8.2); eGFR 72 ML/MIN
[2019-11-27] MEDS ORDERED: ONDA4TAB6 PO (15:50)
== END 2019-11-27 16:08 | disposition home or self-care (01) ==
LOC: ER 13:51
DX: R11.0 Nausea (principal); R53.83 Other fatigue; R53.81 Other malaise; E11.9 Type 2 diabetes mellitus without complications; F10.20 Alcohol dependence, uncomplicated; Y90.0 Blood alcohol level of less than 20 mg/100 ml
CPT/HCPCS: 36415; 80053; 81001; 82948; 83690; 85025; 93005; 99284

== ENCOUNTER 2019-11-30 06:16 | Day surgery (SDC) | payer MEDICARE ==
[~2019-11-30] VITALS: Ht 177.8 cm; Wt 86.9 kg
[~2019-11-30 06:16] MED LIST changes: +ONDA4TAB6 PO
[2019-11-30 06:49] VITALS: BP 113/70
[2019-11-30] MEDS ORDERED: sodium bicarbonate (8.4%) inj. 150 ML in dextrose 5%-water 850 ML IV ONE (06:50)
[2019-11-30] MEDS ORDERED: MULT-269 PO (07:16)
[2019-11-30] MEDS ORDERED: ASPI-101 PO (07:16)
[2019-11-30] MEDS: acetylcysteine 200 MG/ml 4ml vial PO PRN ×2 (08:27→11:40)
--- NOTE | 2019-11-30 09:28 | NUR ---
Called Brigitte Natarajan NP re pt's request for pain medication. Provider ordered urine tox screen prior to ordering narcotic pain medication for pt. Addendum: 11/30/19 at 1129 by Maral Berry RN Pt's urine tox screen positive for benzos, provider notified. Order received for Tylenol 325mg for c/o pain.
[2019-11-30] MEDS ORDERED: iohexol 350MG/ML 100ml bottle IV ONE (10:16)
[2019-11-30] MEDS ORDERED: iohexol 350 MG/ML 50ML vial IV ONE (10:16)
[2019-11-30 11:05] LABS: URINE AMPHETAMINE SCREEN NEGATIVE (Neg); URINE BARBITUATE SCREEN NEGATIVE (Neg); URINE BENZODIAZEPINES SCREEN POSITIVE (Neg); URINE CANNABINOID SCREEN NEGATIVE (Neg); URINE COCAINE SCREEN NEGATIVE (Neg); URINE METHADONE SCREEN NEGATIVE (Neg); URINE OPIATE SCREEN NEGATIVE (Neg); URINE PHENCYCLIDINE SCREEN NEGATIVE (Neg)
[2019-11-30] MEDS ORDERED: acetaminophen 325mg tablet PO PRN (11:30)
[2019-11-30 12:40] VITALS: BP 87/47
[2019-11-30 12:55] VITALS: BP 87/47
== END 2019-11-30 12:55 | disposition home or self-care (01) ==
LOC: SSTAY O 06:16 → EDSTATUS 09:00 → SSTAY O 12:55
PROVIDERS: ATTEND Nurse Practitioner
DX: T81.89XD Other complications of procedures, not elsewhere classified, subsequent encounter (principal); N28.89 Other specified disorders of kidney and ureter; K43.9 Ventral hernia without obstruction or gangrene; I70.0 Atherosclerosis of aorta; I70.8 Atherosclerosis of other arteries; X58.XXXD Exposure to other specified factors, subsequent encounter; L97.522 Non-pressure chronic ulcer of other part of left foot with fat layer exposed
CPT/HCPCS: 73706; 74174; 80305; 82948; Q9967

== ENCOUNTER 2019-12-01 08:00 | Day surgery (SDC) | payer MEDICARE ==
[~2019-12-01 08:00] MED LIST changes: +ASPI-101 PO; +MULT-269 PO
[2019-12-01] MEDS ORDERED: LIDOcaine 2% 5ml jelly ONE (09:15)
== END 2019-12-01 10:15 | disposition home or self-care (01) ==
LOC: WOUND CARE 08:00
PROVIDERS: ATTEND Nurse Practitioner
DX: T87.89 Other complications of amputation stump (principal); E11.621 Type 2 diabetes mellitus with foot ulcer; L97.522 Non-pressure chronic ulcer of other part of left foot with fat layer exposed; E11.40 Type 2 diabetes mellitus with diabetic neuropathy, unspecified; E11.36 Type 2 diabetes mellitus with diabetic cataract; I25.10 Atherosclerotic heart disease of native coronary artery without angina pectoris; F32.9 Major depressive disorder, single episode, unspecified; F10.10 Alcohol abuse, uncomplicated; Z95.0 Presence of cardiac pacemaker; Z87.891 Personal history of nicotine dependence; Z90.49 Acquired absence of other specified parts of digestive tract; Z79.01 Long term (current) use of anticoagulants; Y83.5 Amputation of limb(s) as the cause of abnormal reaction of the patient, or of later complication, without mention of misadventure at the time of the procedure
CPT/HCPCS: 36416; 82948; 97597

== ENCOUNTER 2019-12-12 22:30 | Emergency (ER) | payer OTHER, MEDICARE ==
[~2019-12-12] VITALS: Ht 172.7 cm; Wt 81.0 kg
[2019-12-12 22:54] LABS: BASOPHILS # (AUTO) 0.1 X10'3 (0-0.2); BASOPHILS % (AUTO) 1.9 % (0-1); EOSINOPHILS # (AUTO) 0.1 X10'3 (0-0.9); EOSINOPHILS % (AUTO) 1.8 % (0-6); HEMATOCRIT 31.3 % (42.0-52.0); HEMOGLOBIN 10.3 g/dl (14.0-17.9); LYMPHOCYTES # (AUTO) 2.8 X10'3 (1.1-4.8); LYMPHOCYTES % (AUTO) 54.2 % (21-51); MEAN CORPUSCULAR HEMOGLOBIN 29.3 PG (27.0-31.0); MEAN CORPUSCULAR HGB CONC 32.9 g/dL (33.0-36.5); MEAN CORPUSCULAR VOLUME 89.1 FL (78-98); MEAN PLATELET VOLUME 6.9 FL (7.4-10.4); MONOCYTES # (AUTO) 0.5 X10'3 (0-0.9); MONOCYTES % (AUTO) 9.5 % (2-12); NEUTROPHILS # (AUTO) 1.7 X10'3 (1.8-7.7); NEUTROPHILS % (AUTO) 32.6 % (42-75); PLATELET COUNT 200 X10'3 (140-440); RED BLOOD COUNT 3.51 X10'6 (4.70-6.10); RED CELL DISTRIBUTION WIDTH 20.5 % (11.5-14.5); WHITE BLOOD COUNT 5.2 X10'3 (4.5-11.0)
[2019-12-12 23:10] LABS: ALANINE AMINOTRANSFERASE 32 U/L (12-78); ALBUMIN 2.3 G/DL (3.4-5.0); ALBUMIN/GLOBULIN RATIO 0.9 (1.1-1.5); ALKALINE PHOSPHATASE 141 IU/L (46-116); ANION GAP 7 (8-16); ASPARTATE AMINO TRANSFERASE 31 U/L (10-37); BILIRUBIN,TOTAL 0.3 MG/DL (0.1-1.0); BLOOD UREA NITROGEN 12 MG/DL (7-18); BUN/CREATININE RATIO 10.2 (5.4-32.0); CALCIUM 7.5 MG/DL (8.5-10.1); CHLORIDE 115 MMOL/L (99-107); CREATININE 1.18 MG/DL (0.60-1.10); GLUCOSE 77 MG/DL (70-104); POTASSIUM 3.4 MMOL/L (3.5-5.1); SODIUM 147 MMOL/L (135-145); TOTAL CARBON DIOXIDE 25.5 MMOL/L (24-32); TOTAL PROTEIN 4.9 G/DL (6.4-8.2); eGFR 61 ML/MIN
[2019-12-12 23:16] LABS: ANISOCYTOSIS 3+; ELLIPTOCYTES 1+; PLATELET ESTIMATE NORMAL; TOTAL CELLS COUNTED 100
[2019-12-12 23:40] VITALS: BP 135/64
== END 2019-12-12 23:42 | disposition home or self-care (01) ==
LOC: ER 22:31
DX: F10.10 Alcohol abuse, uncomplicated (principal); I10 Essential (primary) hypertension; E11.9 Type 2 diabetes mellitus without complications; Z95.0 Presence of cardiac pacemaker; Z98.890 Other specified postprocedural states; Z87.891 Personal history of nicotine dependence; Z60.2 Problems related to living alone; Z79.82 Long term (current) use of aspirin; Z79.899 Other long term (current) drug therapy
CPT/HCPCS: 36415; 80053; 82948; 85025; 99284

== ENCOUNTER 2019-12-13 22:22 | Emergency (ER) | payer OTHER, MEDICARE ==
[~2019-12-13] VITALS: Ht 172.7 cm; Wt 81.8 kg
--- NOTE | 2019-12-13 22:56 | NUR ---
On exam pt. alvaro any pain or other complaint, pt. states same vauge "I just don't feel good" from last night and "I guess will just go home if nothing is wrong"
[2019-12-13 22:58] VITALS: BP 127/73
== END 2019-12-13 23:23 | disposition home or self-care (01) ==
LOC: ER 22:23
DX: G89.29 Other chronic pain (principal); I10 Essential (primary) hypertension; E11.9 Type 2 diabetes mellitus without complications; Z95.0 Presence of cardiac pacemaker; Z98.890 Other specified postprocedural states; Z60.2 Problems related to living alone; Z79.82 Long term (current) use of aspirin; Z79.899 Other long term (current) drug therapy
CPT/HCPCS: 99284

== ENCOUNTER 2020-10-10 15:42 | Emergency (ER) | payer OTHER, MEDICARE ==
[~2020-10-10] VITALS: Ht 177.8 cm; Wt 113.6 kg
[~2020-10-10 15:42] MED LIST changes: +LISI40TA13 PO; -LISI40TA4 PO; -ONDA4TAB6 PO
[2020-10-10] MEDS ORDERED: normal saline 1000ML IV soln IVB ONE (16:55)
--- NOTE | 2020-10-10 17:55 | NUR ---
patient's wallet is laying on the student driving instructor the room, while the patient was rolling around on the gurney change kept falling out of his left pocket of his shorts. I picked all the change up (unknown amount) and stuck it in the dollar portion of his wallet.
[2020-10-10 18:56] VITALS: BP 142/74
== END 2020-10-10 18:58 | disposition home or self-care (01) ==
LOC: ER 15:42
DX: S00.81XA Abrasion of other part of head, initial encounter (principal); F10.129 Alcohol abuse with intoxication, unspecified; F10.10 Alcohol abuse, uncomplicated; I10 Essential (primary) hypertension; E11.9 Type 2 diabetes mellitus without complications; Z95.0 Presence of cardiac pacemaker; Z72.89 Other problems related to lifestyle; Z60.2 Problems related to living alone; Z79.82 Long term (current) use of aspirin; Z79.899 Other long term (current) drug therapy; Z98.890 Other specified postprocedural states; X58.XXXA Exposure to other specified factors, initial encounter; Y93.89 Activity, other specified; Y92.89 Other specified places as the place of occurrence of the external cause; Y99.8 Other external cause status; Y90.9 Presence of alcohol in blood, level not specified
CPT/HCPCS: 96360; 99283; J7030

== ENCOUNTER 2021-02-21 23:09 | Emergency (ER) | payer OTHER, MEDICARE ==
[~2021-02-21] VITALS: Ht 177.8 cm; Wt 95.5 kg
[2021-02-21 23:15] VITALS: BP 105/57
== END 2021-02-21 23:36 ==
LOC: ER 23:10
DX: F10.129 Alcohol abuse with intoxication, unspecified (principal); R47.81 Slurred speech; I10 Essential (primary) hypertension; E11.9 Type 2 diabetes mellitus without complications; Z95.0 Presence of cardiac pacemaker; Z72.89 Other problems related to lifestyle; Z60.2 Problems related to living alone; Z79.82 Long term (current) use of aspirin; Z79.899 Other long term (current) drug therapy; Y90.9 Presence of alcohol in blood, level not specified
CPT/HCPCS: 99283

== ENCOUNTER 2021-07-26 00:42 | Emergency (ER) | payer OTHER, MEDICARE ==
[~2021-07-26] VITALS: Ht 175.3 cm; Wt 104.5 kg
[2021-07-26 02:10] LABS: BASOPHILS % (AUTO) 0.6 % (0-1); EOSINOPHILS # (AUTO) 0.3 X10'3 (0-0.9); EOSINOPHILS % (AUTO) 4.5 % (0-6); HEMATOCRIT 32.5 % (42.0-52.0); HEMOGLOBIN 10.4 g/dl (14.0-17.9); LYMPHOCYTES # (AUTO) 1.1 X10'3 (1.1-4.8); LYMPHOCYTES % (AUTO) 14.1 % (21-51); MEAN CORPUSCULAR HEMOGLOBIN 24.5 PG (27.0-31.0); MEAN CORPUSCULAR VOLUME 76.5 FL (78-98); MEAN PLATELET VOLUME 9.8 FL (7.4-10.4); MONOCYTES # (AUTO) 1.1 X10'3 (0-0.9); MONOCYTES % (AUTO) 14.3 % (2-12); NEUTROPHILS # (AUTO) 5.1 X10'3 (1.8-7.7); NEUTROPHILS % (AUTO) 66.5 % (42-75); PLATELET COUNT 188 X10'3 (140-440); RED BLOOD COUNT 4.25 X10'6 (4.70-6.10); RED CELL DISTRIBUTION WIDTH 18.5 % (11.5-14.5); WHITE BLOOD COUNT 7.6 X10'3 (4.5-11.0)
[2021-07-26 02:20] LABS: ALBUMIN 3.1 G/DL (3.4-5.0); ANION GAP 12 (8-16); BLOOD UREA NITROGEN 30 MG/DL (7-18); BUN/CREATININE RATIO 17.9 (5.4-32.0); CALCIUM 8.2 MG/DL (8.5-10.1); CHLORIDE 106 MMOL/L (99-107); CREATININE 1.68 MG/DL (0.60-1.10); GLUCOSE 144 MG/DL (70-104); POTASSIUM 4.7 MMOL/L (3.5-5.1); SODIUM 140 MMOL/L (135-145); TOTAL CARBON DIOXIDE 22.5 MMOL/L (24-32); eGFR 40 ML/MIN
[2021-07-26] MEDS ORDERED: SOTROVIMAB 500 MG in NS 100ml IV soln IV ONE (03:40)
[2021-07-26] MEDS ORDERED: diphenhydrAMINE 50 mg/ml inj IV PRN (03:40)
[2021-07-26] MEDS ORDERED: acetaminophen 325mg tablet PO PRN (03:40)
[2021-07-26] MEDS ORDERED: albuterol 2.5 MG/3 ML nebule NEB PRN (03:40)
[2021-07-26] MEDS ORDERED: hydrocortisone sod succ/PF 100mg/2ml inj. IV PRN (03:40)
[2021-07-26] MEDS ORDERED: epiNEPHrine 1 mg/ml inj IM PRN (03:40)
[2021-07-26] MEDS ORDERED: famotidine/PF 10 mg/ml inj IV PRN (03:40)
[2021-07-26 06:08] VITALS: BP 157/71
[2021-07-26] MEDS ORDERED: Melatonin 3mg tablet PO SCH (21:00)
== END 2021-07-26 06:11 | disposition home or self-care (01) ==
LOC: ER 00:42
DX: U07.1 COVID-19 (principal); R05.9 Cough, unspecified; R50.9 Fever, unspecified; I12.9 Hypertensive chronic kidney disease with stage 1 through stage 4 chronic kidney disease, or unspecified chronic kidney disease; E11.22 Type 2 diabetes mellitus with diabetic chronic kidney disease; N18.9 Chronic kidney disease, unspecified; Z95.0 Presence of cardiac pacemaker; Z72.89 Other problems related to lifestyle; Z60.2 Problems related to living alone; Z79.82 Long term (current) use of aspirin; Z79.899 Other long term (current) drug therapy
CPT/HCPCS: 36415; 71045; 80048; 85025; 87635; 99284; C9803; J3490; M0247; Q0247

== ENCOUNTER 2021-08-13 23:29 | Emergency (ER) | payer OTHER, MEDICARE ==
[~2021-08-13] VITALS: Ht 175.3 cm; Wt 104.5 kg
[2021-08-14 01:43] VITALS: BP 113/60
== END 2021-08-14 01:44 ==
LOC: ER 23:31
DX: Z04.1 Encounter for examination and observation following transport accident (principal); Z20.822 Contact with and (suspected) exposure to COVID-19; F10.129 Alcohol abuse with intoxication, unspecified; I10 Essential (primary) hypertension; E11.9 Type 2 diabetes mellitus without complications; F12.90 Cannabis use, unspecified, uncomplicated; Z95.0 Presence of cardiac pacemaker; Z98.890 Other specified postprocedural states; Z72.89 Other problems related to lifestyle; Z79.82 Long term (current) use of aspirin; Z79.899 Other long term (current) drug therapy; Y90.9 Presence of alcohol in blood, level not specified
CPT/HCPCS: 71045; 87635; 99283; C9803